=== PATIENT | male | born 1940 | race Caucasian/White ===

== ENCOUNTER 2018-11-18 02:24 | Observation (INO) | payer MEDICARE, BC ==
[~2018-11-18] VITALS: Ht 175.3 cm; Wt 134.1 kg
[~2018-11-18 02:24] MED LIST: AVINZA30 MG PO; CALAN SR240 MG PO; GLUCOPHAGE500 MG PO; HYDROCHLOROTH12.5 M1 PO; LISINOPRIL2.5 MG PO; MS CONTIN15 MG PO; PRINIVIL20 MG PO; RYBIX ODT50 MG PO; ZANAFLEX6 MG PO
[2018-11-18] MEDS ORDERED: ZANAFLEX4 MG PO (02:32)
[2018-11-18 02:42] LABS: BASOPHILS 0.1 % (0-2); EOSINOPHILS 1.5 % (0-7); HEMATOCRIT 39.1 % (42.0-54.0); HEMOGLOBIN 13.3 g/dL (13.5-17.5); IMMATURE GRANULOCYTES 0.3 % (0-5); LYMPHOCYTES 19.6 % (15-50); MCH 29.6 pg (26.0-34.0); MCV 87.1 fL (80.0-100.0); MEAN PLATELET VOLUME 9.8 fL (7.4-10.4); MONOCYTES 11.2 % (2-11); NEUTROPHILS 67.3 % (40-80); RBC 4.49 10x6/uL (4.20-6.10); RDW 12.9 % (11.5-14.5); WBC 13.4 10x3/uL (4.8-10.8)
[2018-11-18 02:47] LABS: PLATELET COUNT 231 10x3/uL (130-400)
[2018-11-18 03:00] VITALS: BP 172/69
[2018-11-18 03:11] LABS: ALBUMIN 3.6 g/dL (3.4-5.0); ALKALINE PHOSPHATASE 84 U/L (46-116); ALT (SGPT) 27 U/L (10-68); CALC OSMOLALITY 284 mosm/kg (275-300); CALCIUM 9.3 mg/dL (8.5-10.1); CARBON DIOXIDE 29.7 mmol/L (21.0-32.0); CHLORIDE - SERUM 98 mmol/L (98-107); CREATININE - SERUM 1.2 mg/dL (0.6-1.3); GLUCOSE 170 mg/dL (74-106); POTASSIUM - SERUM 3.9 mmol/L (3.5-5.1); PROTEIN - SERUM 8.7 g/dL (6.4-8.2); SODIUM 138 mmol/L (136-145); UREA NITROGEN 26 mg/dL (7-18); eGFR NON AFRICAN AMERICAN 63 mL/min (90-120)
[2018-11-18 03:12] LABS: APTT 36.7 SECONDS (22.8-39.4); INR 1.05 (0.85-1.17); PROTIME 13.2 SECONDS (11.6-15.0)
[2018-11-18 03:20] LABS: CKMB 2.7 U/L (0.0-3.6); CREATINE KINASE 108 UL (21-232); TROPONIN-I < 0.017 ng/mL (0.000-0.060)
--- NOTE | 2018-11-18 03:54 | NUR ---
[facility] ER NURSE CALLED REPORT AND WILL BRING PATIENT TO THE FLOOR.
[2018-11-18] MEDS ORDERED: BAYER CHEWABLE81 MG PO (04:45)
[2018-11-18 05:04] VITALS: BP 192/65; BMI 44.0
--- NOTE | 2018-11-18 05:27 | NUR ---
PAGED DOCTOR ON-CALL FOR PAIENTS PAIN LEVEL. PATIENT IS IN ROOM CRYING FROM PAIN.
[2018-11-18 06:54] LABS: ALBUMIN 3.4 g/dL (3.4-5.0); ALKALINE PHOSPHATASE 77 U/L (46-116); ALT (SGPT) 26 U/L (10-68); BILIRUBIN - TOTAL 1.01 mg/dL (0.2-1.3); CALC OSMOLALITY 278 mosm/kg (275-300); CALCIUM 9.6 mg/dL (8.5-10.1); CARBON DIOXIDE 27.2 mmol/L (21.0-32.0); CHLORIDE - SERUM 98 mmol/L (98-107); CKMB 2.4 U/L (0.0-3.6); CREATINE KINASE 101 UL (21-232); CREATININE - SERUM 1.1 mg/dL (0.6-1.3); GLUCOSE 183 mg/dL (74-106); PROTEIN - SERUM 8.4 g/dL (6.4-8.2); SODIUM 135 mmol/L (136-145); TROPONIN-I < 0.017 ng/mL (0.000-0.060); UREA NITROGEN 23 mg/dL (7-18); eGFR NON AFRICAN AMERICAN 69 mL/min (90-120)
--- NOTE | 2018-11-18 07:00 | NUR ---
RECEIVED REPORT. ASSUMED CARE OF PATIENT. CALL LIGHT WITHIN REACH. NO DISTRESS. RESTING IN BED WITH EYES CLOSED. PATIENT COMPLAIN OF DISCOMFORT TO NECK AND RIGHT SHOULDER. ADJUSTED PILLOW FOR COMFORT. PATIENT RECENTLY ADMINISTERED PAIN MEDICATION. DR. GARZA ON UNIT FOR AM ROUNDS.
--- NOTE | 2018-11-18 08:36 | NUR ---
PATIENT QUESTIONED ABOUT NECK AND SHOULDER PAIN AND PATIENT STATED HE FELL ABOUT 2 WEEKS AGO ON CONCRETE AT HIS APARTMENT COMPLEX. ON UNIT FOR ROUNDS AND NOTIFIED OF THIS INFORMATION THAT PATIENT HAD NO TOLD ANYONE AND NEW ORDERS RECEIVED FOR XRAYS.
[2018-11-18 09:43] VITALS: Ht 175.3 cm; Wt 134.1 kg
--- NOTE | 2018-11-18 09:59 | NUR ---
PATIENT OFF UNIT FOR XR OF SHOULDER AND NECK AT THIS TIME VIA WHEELCHAIR.
--- NOTE | 2018-11-18 10:20 | NUR ---
PATIENT RETURNED TO ROOM VIA WHEELCHAIR FROM XRAY
[2018-11-18 10:35] VITALS: BP 171/73
--- NOTE | 2018-11-18 11:55 | NUR ---
FSBS 252. 10 UNITS HUMULIN R ADMINISTERED PER SLIDING SCALE.
[2018-11-18 12:09] LABS: CREATINE KINASE 104 UL (21-232); TROPONIN-I < 0.017 ng/mL (0.000-0.060)
[2018-11-18 12:50] VITALS: BP 174/70
--- NOTE | 2018-11-18 15:49 | NUR ---
MEDICATED FOR PAIN AT THIS TIME. NO DISTRESS.
--- NOTE | 2018-11-18 18:09 | NUR ---
FSBS 225. 8 UNITS HUMULIN ADMINISTERED PER SLIDING SCALE. NO DISTRESS.
[2018-11-18 19:14] LABS: CKMB 1.3 U/L (0.0-3.6); CREATINE KINASE 85 UL (21-232); TROPONIN-I < 0.017 ng/mL (0.000-0.060)
[2018-11-18 20:00] VITALS: BP 128/73
--- NOTE | 2018-11-18 21:30 | NUR ---
PT UP IN BATHEROOM. PT SOB AND COMPLAINS OF 8/10PAIN IN NECK. PT STATES, "I CAN'T MOVE MY NECK. PRN PAIN MED GIVEN. LAID PT BACK IN BED AND GOT HIM ADJUSTED. PT RR RETURNED TO EVEN AND UNLABORED. BED LOW CALL LIGHT WITH IN REACH. WILL CONTINUE TO MONITOR. INSTRUCTED PT TO USE CALL LIGHT WHEN GETTING UP.
[2018-11-19 00:30] VITALS: BP 124/72
--- NOTE | 2018-11-19 00:37 | NUR ---
PT RESTING IN BED WITH EYES CLOSED RR EVEN AND UNLABORED. NO S/S OF DISTRESS AT THIS TIME. BED LOW CALL LIGHT WITHIN REACH. WILL CONTINUE TO MONITOR.
[2018-11-19 04:00] VITALS: BP 132/70
[2018-11-19 04:41] LABS: BASOPHILS 0.2 % (0-2); EOSINOPHILS 2.4 % (0-7); HEMATOCRIT 37.2 % (42.0-54.0); HEMOGLOBIN 12.5 g/dL (13.5-17.5); IMMATURE GRANULOCYTES 0.4 % (0-5); LYMPHOCYTES 21.3 % (15-50); MCH 29.5 pg (26.0-34.0); MCHC 33.6 g/dL (31.0-37.0); MCV 87.7 fL (80.0-100.0); MEAN PLATELET VOLUME 9.3 fL (7.4-10.4); MONOCYTES 16.2 % (2-11); NEUTROPHILS 59.5 % (40-80); PLATELET COUNT 185 10x3/uL (130-400); RBC 4.24 10x6/uL (4.20-6.10); RDW 13.1 % (11.5-14.5)
[2018-11-19 04:46] LABS: WBC 8.5 10x3/uL (4.8-10.8)
--- NOTE | 2018-11-19 04:54 | NUR ---
I have reviewed this patient and I concur with the Shift Assessment completed by the Licensed Practical Nurse today this shift.
--- NOTE | 2018-11-19 05:41 | NUR ---
PT A/O UP TO BATHEROOM. NO S/S OF DISTRESS AT THIS TIME. BED LOW CALL LIGHT WITHIN REACH. WILL CONTINUE TO MONITOR.
--- NOTE | 2018-11-19 07:00 | NUR ---
RECEIVED REPORT. ASSUMED CARE OF PATIENT. RESTING IN SUPINE POSITION WITH EYES CLOSED. RESP EVEN AND UNLABORED. NO DISTRESS. CALL LIGHT WITHIN REACH.
[2018-11-19 07:51] VITALS: BP 154/62
--- NOTE | 2018-11-19 09:00 | NUR ---
ASSISTED PATIENT TO SIT TO SIDE OF BED. CALL LIGHT WIHTIN REACH. NO DISTRESS. NO FAMILY AT BEDSIDE. PATIENT HAD NO COMPLAINTS AT THIS TIME.
--- NOTE | 2018-11-19 09:56 | CN ---
PATIENT NAME:ARTHUR LEIJA MEDICAL RECORD: [id number] : 44 LOCATION:D. D.2113 ADMIT DATE: 11/18/18 ACCOUNT: [id number] CONSULTING PHYSICIAN: ANGELA CURTIS MD REFERRING PHYSICIAN: CHITRA GARZA MD DATE OF CONSULTATION: 11/18/2018 HISTORY OF PRESENT ILLNESS: Arthur Leija is a 77-year-old gentleman with no known history of coronary artery disease, actually had a diagnostic angiography at approximately 4 years ago with no obstructive coronary artery disease. Admitted with somewhat atypical chest pain involving both shoulders, radiating to both arms, not worse with activity, did have a fall recently while taking the trash out felt to be secondary to this. Has chronic pain syndrome, on chronic opioids. We are asked to see him concerning his cardiovascular status. PAST MEDICAL HISTORY: Includes: 1. History of hypertension. 2. Hyperlipidemia. 3. Diabetes mellitus. ALLERGIES: INCLUDE SULFA, BETA ADRENERGIC AGENTS. SOCIAL HISTORY: Nonsmoker, nondrinker, easily does take care of his ADLs. No set exercise program. MEDICATIONS: Include morphine 30 mg b.i.d., metformin 500 b.i.d., hydrochlorothiazide 12.5 b.i.d., MS Contin 15 every 12 hours, aspirin 81 every day, lisinopril 20 b.i.d., verapamil 240 every day, Zanaflex 4 mg every 6 hours p.r.n. REVIEW OF SYSTEMS: The patient reports easy bruising but reports no swollen glands. The patient reports no fever, no night sweats, no significant weight gain, no significant weight loss. No significant exercise tolerance. The patient reports no dry eyes, no irritation, no vision change. Patient reports no difficulty hearing and no ear pain. Patient reports no frequent nose bleeds or nose and sinus problems. Patient reports on arm pain on exertion. No shortness of breath while lying down. No history of heart murmur. Patient reports no cough, no wheezing or coughing up blood. Patient reports no abdominal pain, no vomiting. Normal appetite. No diarrhea and not vomiting blood. No nausea and no constipation. Patient reports no incontinence. No difficulty urinating. No hematuria. No increased frequency. Patient reports no muscle aches. No weakness, no arthralgias, no back pain. No swelling of the extremities. Patient reports no abnormal mole, no jaundice, no rashes. Reports no loss of consciousness. No weakness and no numbness. No seizures, dizziness, or headaches. The patient reports no depression, no sleep disturbance, feeling safe in a relationship and no alcohol abuse. Patient reports on fatigue. Reports no runny nose or sinus pressure. No itching, no hives, and no frequent sneezing. PHYSICAL EXAMINATION: GENERAL: Pleasant gentleman in no acute distress, appears stated age. VITAL SIGNS: Blood pressure 192/65, pulse 78 and regular. HEENT: Normocephalic, atraumatic. NECK: No bruits are noted. HEART: Regular, S4 gallop is noted. CONSULT REPORT [id number] ARTHUR LEIJA LUNGS: Good air excursion. ABDOMEN: Soft, nontender. EXTREMITIES: Pulses 2+. There is no edema. DIAGNOSTIC DATA: ECG shows a left anterior fascicular block, no acute ST-T changes. IMPRESSION: Somewhat atypical symptomatologies. Enzymes negative at this point. If it continues to be negative, then he will receive pain control with his oral analgesics. No contraindication to discharge from my standpoint, simply set for outpatient nuclear stress testing in the near future. TRANSINT:[id number] Voice Confirmation ID: [id number] DOCUMENT ID: [id number] ANGELA CURTIS MD at 0956 CC: [id number] DICTATION DATE: 11/18/18939 DYE HOUSE WORKER: 11/18/18 1114 ADM IN [place] [id number] [place] [id number]
--- NOTE | 2018-11-19 11:50 | NUR ---
FSBS 216. 8 UNITS HUMULIN R ADMINISTERED PER SLIDING SCALE. MEDICATED FOR PAIN AT THIS TIME. SITTING TO SIDE OF BED CONSUMING NOON MEAL. NO DISTRESS.
[2018-11-19 12:11] VITALS: BP 160/61
[2018-11-19] MEDS ORDERED: ZANAFLEX4 MG PO (13:27)
--- NOTE | 2018-11-19 14:46 | NUR ---
1420 TELEMETRY REMOVED AND RETURNED TO HOSPITAL ADMISSIONS OFFICER. 20 GAUGE IV REMOVED FROM LEFT AC AREA. CATHETER TIP INTACT. NO BLEEDING FROM SITE. 2X2 GAUZE APPLIED AND SECURED WITH BANDAID. TOLERATED IV REMOVAL WELL. PATIENT IS BEING DISCHARGED TO HOME.
--- NOTE | 2018-11-19 14:47 | NUR ---
1435 DISCHARGE INSTRUCTIONS PROVIDED TO PATIENT. VERBALIZED HIS UNDERSTANDING OF ALL INSTRUCTIONS PROVIDED. 1440 PATIENT LEFT UNIT VIA WHEELCHAIR. PATIENT DISCHARGED TO HOME WITH ALL OF HIS PERSONAL BELONGINGS. PATIENT IN NO ACUTE DISTRESS UPON DISCHARGE FROM UNIT. PATIENT LEFT UNIT WITH WALLET, 2 SETS OF KEYS, CHECKBOOK, CELLPHONE AND SALES SERVICE COORDINATOR.
--- NOTE | 2018-11-20 09:04 | MORECARE ---
CASE MANAGEMENT DISCHARGE SUMMARY PATIENT: STAR BAJWA UNIT: [id number] ADM DATE: 11/18/18 AGE: 77 : 42 SEX: M ROOM/BED: D.2113 AUTHOR: NIKO DIANA PHYSICIAN: REFERRING PHYSICIAN: CHITRA GARZA MD DATE OF SERVICE: 11/20/18 Discharge Plan Patient Name: STAR BAJWA [facility] [facility] 1940 Planned Disposition: Home Anticipated Discharge Date: 11/19/18 Discharge Date: 11/19/2018 Expected LOS: 1 Initial Reviewer: [email or web address] Initial Review Date: 11/20/2018 Generated: 11/20/18 10:03 am Patient Name: STAR BAJWA Page [phone] at 0904 All edits/amendments must be made on the electronic document DICTATION DATE: 11/20/18902 COREMAKER: CL 11/20/18902 RPT#: [id number] DC DATE:11/19/18 STATUS: DIS IN [facility] [address] [place] [address] END OF REPORT
== END 2018-11-19 14:50 | disposition home or self-care (01) ==
LOC: D.ER 02:24 → OBSVTIME 03:09 → D.M2 03:09
PROVIDERS: Emergency Medicine; ADMIT Family Medicine; ATTEND Family Medicine
DX: M50.90 Cervical disc disorder, unspecified, unspecified cervical region (principal); S16.1XXA Strain of muscle, fascia and tendon at neck level, initial encounter; W19.XXXA Unspecified fall, initial encounter; E11.9 Type 2 diabetes mellitus without complications; R07.9 Chest pain, unspecified; I10 Essential (primary) hypertension; E78.5 Hyperlipidemia, unspecified

== ENCOUNTER 2018-11-23 15:17 | Inpatient (IN) | payer MEDICARE, BC ==
[2018-11-23] VITALS (9 sets, daily range): BP systolic 116–140; BP diastolic 44–80; BMI 44.7
[~2018-11-23] VITALS: Ht 175.3 cm; Wt 134.8 kg
[~2018-11-23 15:17] MED LIST changes: +BAYER CHEWABLE81 MG PO; +ZANAFLEX4 MG PO
--- NOTE | 2018-11-23 15:39 | NUR ---
SPOKE TO WEN WITH DR GARZA. PATIENT SENT HERE FOR WEAKNESS, N&V. NO LABS OR ORDERS.
[2018-11-23 16:05] LABS: BASOPHILS 0.1 % (0-2); EOSINOPHILS 0 % (0-7); HEMATOCRIT 37.5 % (42.0-54.0); HEMOGLOBIN 12.5 g/dL (13.5-17.5); IMMATURE GRANULOCYTES 0.4 % (0-5); LYMPHOCYTES 13.5 % (15-50); MCH 29.3 pg (26.0-34.0); MCHC 33.3 g/dL (31.0-37.0); MEAN PLATELET VOLUME 9.9 fL (7.4-10.4); MONOCYTES 12.6 % (2-11); NEUTROPHILS 73.4 % (40-80); RBC 4.26 10x6/uL (4.20-6.10); RDW 13.8 % (11.5-14.5)
[2018-11-23 16:09] LABS: PLATELET COUNT 272 10x3/uL (130-400)
[2018-11-23 16:14] LABS: INR 1.19 (0.85-1.17); PROTIME 14.6 SECONDS (11.6-15.0)
[2018-11-23 16:15] LABS: APTT 37.6 SECONDS (22.8-39.4)
[2018-11-23 16:26] LABS: ALBUMIN 3.5 g/dL (3.4-5.0); ALKALINE PHOSPHATASE 67 U/L (46-116); ALT (SGPT) 30 U/L (10-68); BILIRUBIN - TOTAL 0.74 mg/dL (0.2-1.3); CALC OSMOLALITY 312 mosm/kg (275-300); CARBON DIOXIDE 29.3 mmol/L (21.0-32.0); CHLORIDE - SERUM 95 mmol/L (98-107); CREATININE - SERUM 11.1 mg/dL (0.6-1.3); POTASSIUM - SERUM 5.8 mmol/L (3.5-5.1); PROTEIN - SERUM 8.9 g/dL (6.4-8.2); SODIUM 141 mmol/L (136-145); UREA NITROGEN 100 mg/dL (7-18); eGFR NON AFRICAN AMERICAN 5 mL/min (90-120)
[2018-11-23 16:31] LABS: CKMB 8.1 U/L (0.0-3.6); CREATINE KINASE 769 UL (21-232); GLUCOSE 121 mg/dL (74-106); THYROID STIMULATING HORMONE 0.96 uIU/mL (0.36-3.74); TROPONIN-I < 0.017 ng/mL (0.000-0.060)
[2018-11-23 16:37] LABS: KETONE - SERUM NEGATIVE (NEGATIVE)
[2018-11-23 17:23] LABS: APPEARANCE HAZY (CLEAR); BILIRUBIN NEGATIVE (NEGATIVE); COLOR AMBER (YELLOW); GLUCOSE 50 mg/dL (NEGATIVE); KETONE NEGATIVE (NEGATIVE); NITRITE NEGATIVE (NEGATIVE); PROTEIN 2+ mg/dL (NEGATIVE); UROBILINOGEN NORMAL (NORMAL)
[2018-11-23 17:24] LABS: BACTERIA MODERATE /hpf (NEGATIVE); EPITHELIAL CELLS 0-5 /hpf (0-5); WHITE CELLS - URINE 0-5 /hpf (NEGATIVE)
[2018-11-23 17:29] LABS: UDS - AMPHET NEGATIVE QUAL (NEGATIVE); UDS - BARB NEGATIVE QUAL (NEGATIVE); UDS - BENZO NEGATIVE QUAL (NEGATIVE); UDS - COCAINE NEGATIVE QUAL (NEGATIVE); UDS - OPIATE POSITIVE QUAL (NEGATIVE); UDS - PCP NEGATIVE QUAL (NEGATIVE); UDS - THC NEGATIVE QUAL (NEGATIVE)
--- NOTE | 2018-11-23 17:41 | NUR ---
PT REQUESTED I CALL AND UPDATE PAULIE ULRICH AT [phone]. COMPLETED.
--- NOTE | 2018-11-23 17:50 | NUR ---
REPORT CALLED TO BRADLEY MAS IN CVICU ROOM 2. ROOM DIRTY BUT WILL LET US KNOW WHEN ITS CLEAN.
--- NOTE | 2018-11-23 17:58 | NUR ---
RECEIVED REPORT FROM ER, REGARDING PATIENT, ROOM CURRENTLY BEING CLEANED WILL CALL WHEN CLEAN TO HAVE PATIENT TRANSFERRED. ALSO CONTACTED DR. MYERS'S OFFICE TO NOTIFY OF CONSULT FOR PATIENT.
--- NOTE | 2018-11-23 18:30 | NUR ---
ns bolus stop time #1 1883. #2 5501.
--- NOTE | 2018-11-23 18:59 | NUR ---
[place] [address] FROM ER VIA STRETCHER, ALERT AND ORIENTED X 4. VSS. BP - 130/53, HR - 79 NSR ON CM, BBS CLEAR, DIMINISHED IN BASES, SPO2 - 96% ON 2 LPM VIA NC. IV 20 GA TO LEFT HAND PATENT, INFUSING NS AT 125 CC/HR. CLOTHING REMOVED AND PLACED IN GOWN. POSITIONED IN BED. TEMP 98.3.
--- NOTE | 2018-11-23 19:47 | NUR ---
PT RECEIVED WITH EYES OPEN. NO S/S OF DISTRESS. OFF GOING NURSE PLACING HENDERSON CATHETER PER POLICY. PT TOLERATED WELL NO RETURN NOTED. ER REGISTRATION UP TO ROOM TO PLACE WALLET AND CONTENTS WITH CHECK BOOK INTO SAFE CONTENT OBSERVE BY THIS NURSE AND ER REGISTRATION. PT COMPLAINS OF NAUSEA WITH HOB ELEVATED AND EMESIE BAG WITHIN REACH. PRN ZOFRAN GIVEN PER APR. PT WITH EYES CLOSED AND CHEST RISING AT THIS TIME. CALL LIGHT IN REACH. WILL CONTINUE TO OBSERVE.
--- NOTE | 2018-11-23 21:00 | NUR ---
DR MYERS HAS COME AND ASSESSED PT AND LEFT UNIT.
--- NOTE | 2018-11-23 21:30 | NUR ---
SCHEDULED MEDICATIONS GIVEN PER MAR. NO NEEDS MADE KNOWN. CALL LIGHT IN REACH. WILL CONTINUE TO OBSERVE.
[2018-11-23 23:29] LABS: CKMB 6.8 U/L (0.0-3.6); CREATINE KINASE 657 UL (21-232)
[2018-11-23 23:31] LABS: TROPONIN-I < 0.017 ng/mL (0.000-0.060)
--- NOTE | 2018-11-23 23:54 | NUR ---
PT WITH EYES CLOSED AND CHEST RISING. NO S/S OF DISTRESS. CALL LIGHT IN REACH. WILL CONTINUE TO OBSERVE.
[2018-11-24] VITALS (25 sets, daily range): BP systolic 102–154; BP diastolic 38–67; Ht 175.3 cm; Wt 134.8 kg
--- NOTE | 2018-11-24 02:05 | NUR ---
PT WITH EYES CLOSED AND CHEST RISING. NO S/S OF DISTRESS. CALL LIGHT IN REACH. WILL CONTINUE TO OBSERVE.
--- NOTE | 2018-11-24 03:45 | NUR ---
PT RESTING WITH EYES CLOSED AND CHEST RISING, NO S/S OF DISTRESS. EASILY AWOKEN TO VERBAL STIMULI. NO NEEDS MADE KNOWN. CALL LIGHT IN REACH. WILL CONTINUE TO OBSERVE.
--- NOTE | 2018-11-24 04:27 | NUR ---
URINE COLLECTED VIA CATHETER AND SENT TO LAB. PT TOLERATED WELL
--- NOTE | 2018-11-24 05:06 | NUR ---
CHG BATH GIVEN. COMPLETE LINEN CHANGE. PT TOLERATED WELL. WILL CONTINUE TO OBSERVE.
[2018-11-24 05:36] LABS: BASOPHILS 0.2 % (0-2); EOSINOPHILS 0.3 % (0-7); HEMATOCRIT 35.4 % (42.0-54.0); HEMOGLOBIN 11.4 g/dL (13.5-17.5); IMMATURE GRANULOCYTES 0.4 % (0-5); LYMPHOCYTES 23.6 % (15-50); MCH 28.9 pg (26.0-34.0); MCHC 32.2 g/dL (31.0-37.0); MCV 89.6 fL (80.0-100.0); MONOCYTES 16.4 % (2-11); NEUTROPHILS 59.1 % (40-80); PLATELET COUNT 240 10x3/uL (130-400); RBC 3.95 10x6/uL (4.20-6.10); RDW 13.7 % (11.5-14.5); WBC 12.8 10x3/uL (4.8-10.8)
[2018-11-24 06:01] LABS: ALBUMIN 2.9 g/dL (3.4-5.0); ALKALINE PHOSPHATASE 54 U/L (46-116); ALT (SGPT) 23 U/L (10-68); BILIRUBIN - TOTAL 0.52 mg/dL (0.2-1.3); CALC OSMOLALITY 321 mosm/kg (275-300); CALCIUM 7.6 mg/dL (8.5-10.1); CHLORIDE - SERUM 101 mmol/L (98-107); CKMB 7.2 U/L (0.0-3.6); CREATINE KINASE 628 UL (21-232); CREATININE - SERUM 11.4 mg/dL (0.6-1.3); GLUCOSE 90 mg/dL (74-106); LIPASE 102 U/L (73-393); POTASSIUM - SERUM 5.2 mmol/L (3.5-5.1); PROTEIN - SERUM 7.6 g/dL (6.4-8.2); SODIUM 144 mmol/L (136-145); TROPONIN-I < 0.017 ng/mL (0.000-0.060); UREA NITROGEN 110 mg/dL (7-18); URIC ACID 19.7 mg/dL (2.6-7.2); eGFR NON AFRICAN AMERICAN 5 mL/min (90-120)
--- NOTE | 2018-11-24 07:00 | NUR ---
RECEIVED BEDSIDE REPORT ON PATIENT AND ASSUMED CARE. VSS. PATIENT RESTING QUIETLY, EASILY AROUSED BY VOICE. BBS CLEAR DIMINISHED IN BASES. IV NS AT 125 CC/HR INFUSING W/O DIFFICULTY TO 20 GA IV TO LEFT HAND. NO S/S OF INFILTRATION. HENDERSON CATH IN PLACE WITH LORNA UOP NOTED. ON O2 VIA NC AT 2 LPM.
--- NOTE | 2018-11-24 08:00 | NUR ---
PATIENT EATING BREAKFAST TRAY NO NEEDS AT THIS TIME. VSS.
--- NOTE | 2018-11-24 09:08 | NUR ---
PATIENT GIVEN MORNING MEDS PER EMAR. RESTING QUIETLY, VSS.
[2018-11-24 10:28] LABS: CKMB 8.5 U/L (0.0-3.6); CREATINE KINASE 649 UL (21-232)
[2018-11-24 10:29] LABS: TROPONIN-I < 0.017 ng/mL (0.000-0.060)
--- NOTE | 2018-11-24 11:10 | NUR ---
REASSESSMENT COMPLETE. VSS. REPOSITIONED IN BED.
--- NOTE | 2018-11-24 12:30 | NUR ---
ER REGISTRATION AT ROOM WITH PATIENTS BELONGINGS, GIVEN TO PATIENTS BROTHER TO TAKE HOME.
--- NOTE | 2018-11-24 13:59 | NUR ---
DR. RUTHERFORD AT ROOM, UPDATED ON PATIENT AND EXAMINES PATIENT. ORDERS RECEIVED.
--- NOTE | 2018-11-24 14:09 | NUR ---
PATIENT RESTING QUIELTY, EYES CLOSED. VSS.
--- NOTE | 2018-11-24 14:12 | MORECARE ---
CASE MANAGEMENT DISCHARGE SUMMARY PATIENT: STAR BAJWA UNIT: [id number] ADM DATE: 11/23/18 AGE: 77 : 42 SEX: M ROOM/BED: [facility] AUTHOR: NIKO DIANA PHYSICIAN: REFERRING PHYSICIAN: CHITRA GARZA MD DATE OF SERVICE: 11/24/18 Discharge Plan Patient Name: STAR BAJWA [facility] [facility] 1940 Planned Disposition: Anticipated Discharge Date: Discharge Date: Expected LOS: Initial Reviewer: [email or web address] Initial Review Date: 11/23/2018 Generated: 11/24/18 3:12 pm Patient Name: STAR BAJWA Page [phone] at 1412 All edits/amendments must be made on the electronic document DICTATION DATE: 11/24/181411 RUBBER GOODS ASSEMBLER: CL 11/24/181411 RPT#: [id number] [place] DATE: STATUS: ADM IN [facility] [address] [place] [address] END OF REPORT
--- NOTE | 2018-11-24 14:23 | MORECARE ---
CASE MANAGEMENT DISCHARGE SUMMARY PATIENT: STAR BAJWA UNIT: [id number] ADM DATE: 11/23/18 AGE: 77 : 42 SEX: M [facility] AUTHOR: NIKO DIANA PHYSICIAN: REFERRING PHYSICIAN: CHITRA GARZA MD DATE OF SERVICE: 11/24/18 Discharge Plan Patient Name: STAR BAJWA [facility] [facility] 1940 Planned Disposition: Anticipated Discharge Date: Discharge Date: Expected LOS: Initial Reviewer: [email or web address] Initial Review Date: 11/23/2018 Generated: 11/24/18 3:22 pm DCPIA - Discharge Planning Initial Assessment Updated by [email or web address]: Jaylyn Davenport on 11/24/18 2:18 pm * PCP ALEX MONTERO * Pharmacy [facility] * Preadmission Environment Home Alone * ADLs Independent * Other Equipment WALKER , CANES, BSC * List name and contact numbers for known caregivers / representatives who currently or will assist patient after discharge: PAULIE BAJWA [facility] - [phone] * Verbal permission to speak to the caregivers and representatives has been obtained from the patient. Yes * Community resources currently utilized None * Additional services required to return to the preadmission environment? No * Can the patient safely return to the preadmission environment? Yes * Has this patient been hospitalized within the prior 30 days at any hospital? No Last DP export: 11/24/18 1:12 Patient Name: STAR BAJWA Page [phone] at 1423 All edits/amendments must be made on the electronic document DICTATION DATE: 11/24/181421 CHARTERED ACCOUNTANT: LC 11/24/18 142 RPT#: [id number] DC DATE: STATUS: ADM IN [facility] [address] [place] [address] END OF REPORT
--- NOTE | 2018-11-24 14:33 | MORECARE ---
CASE MANAGEMENT DISCHARGE SUMMARY PATIENT: STAR BAJWA UNIT: [id number] ADM DATE: 11/23/18 AGE: 77 : 42 SEX: M ROOM/BED: D.02 AUTHOR: LEBRONDOC PHYSICIAN: REFERRING PHYSICIAN: CHITRA GARZA MD DATE OF SERVICE: 11/24/18 Discharge Plan Patient Name: STAR BAJWA Facility: [facility]:[place] : 1940 Planned Disposition: Anticipated Discharge Date: Discharge Date: Expected LOS: Initial Reviewer: [email or web address] Initial Review Date: 11/23/2018 Generated: 11/24/18 3:33 pm Comments DCP- Discharge Planning Updated by [email or web address]: Jaylyn Davenport on 11/24/18 1:[address] Patient Name: STAR BAJWA Admission Status: ER Accout number: [id number] Admission Date: 11-23-2018 : 1940 Admission Diagnosis: Attending: CHITRA GARZA Current LOS: 1 Anticipated DC Date: Planned Disposition: Primary Insurance: MEDICARE A & B Discharge Planning Comments: CM met with patient at bedside after explaining CM role and obtaining verbal consent. Patient lives at home alone where he is independent with his care and plans to return there upon discharge. Patient is very difficult to follow in his communication. Patient is speaking in circles and having trouble expressing what he is trying to say. Patient states he is . CM was able to get son's phone number from ER records. CM discussed availability / needs of home health and medical equipment. Patient states he may need some help at home.Patient denies any discharge needs at this time. Patient states he will have his family drive him home upon discharge. CM will re-eval once patients thought process is clearer. Patient will most likely need rehab / snf / or at the least . CM will continue to follow and assist as needed with discharge planning / needs. [employer] Spanish Teacher: Jaylyn Davenport DCPIA - Discharge Planning Initial Assessment Updated by [email or web address]: Jaylyn Davenport on 11/24/18 2:18 pm * PCP ALEX MONTERO * Pharmacy [facility] * Preadmission Environment Home Alone * ADLs Independent * Other Equipment WALKER , CANES, BSC * List name and contact numbers for known caregivers / representatives who currently or will assist patient after discharge: PAULIE BAJWA - [facility] - [phone] * Verbal permission to speak to the caregivers and representatives has been obtained from the patient. Yes * Community resources currently utilized None * Additional services required to return to the preadmission environment? No * Can the patient safely return to the preadmission environment? Yes * Has this patient been hospitalized within the prior 30 days at any hospital? No Last DP export: 11/24/18 1:23 Patient Name: STAR BAJWA Page [phone] at 1433 All edits/amendments must be made on the electronic document DICTATION DATE: 11/24/181432 TRIMMER AND BORER MACHINE OPERATOR: CL 11/24/181432 RPT#: [id number] DC DATE: STATUS: ADM IN [facility] [address] [place] [address] END OF REPORT
--- NOTE | 2018-11-24 15:00 | NUR ---
REASSESSMENT COMPLETED. VSS. PATIENT REPOSITIONED IN BED.
--- NOTE | 2018-11-24 16:29 | NUR ---
PATIENT C/O BACK PAIN, STATES HAS CHRONIC PAIN TO BACK, RATES 6/10, ACHES. GIVEN PRN BUPRENEX 0.2 MG IVP WITH NS FLUSH PER ORDER. TURNED AND REPOSITIONED IN BED.
--- NOTE | 2018-11-24 19:00 | NUR ---
PT ASSESSMENT COMPLETED AT THIS TIME, NO CHANGES FROM NURSE REPORT, VSS, WILL CONT. TO MONITOR
--- NOTE | 2018-11-24 21:00 | NUR ---
PT RESTING WITH EYES CLOSED, RESP EVEN NON LABORED, NO DISTRESS NOTED, VSS
--- NOTE | 2018-11-24 23:00 | NUR ---
PT REASSESSMENT COMPLETED AT THIS TIME, NO CHANGES NOTED, VSS, WILL CONT TO MONITOR
[2018-11-25] VITALS (24 sets, daily range): BP systolic 111–180; BP diastolic 27–83
--- NOTE | 2018-11-25 01:03 | NUR ---
PT PULLED OFF ECG LEADS, WHEN ASKED WHAT HE WAS DOING THE PT RESPONDED HE WAS GETTING UP TO TAKE A SHOWER, PT WAS REORIENTED ON PLACE, TIME, AND SITUATION, PT ADVISED THAT HE UNDERSTOOD., VSS, WILL MONITOR FOR CHANGES
--- NOTE | 2018-11-25 03:00 | NUR ---
PT REASSESSMENT COMPLETED AT THIS TIME, NO CHANGES NOTED, VSS
--- NOTE | 2018-11-25 05:00 | NUR ---
PT I AND O COLLECTED AT THIS TIME, NO DITRESS NOTED, VSS
[2018-11-25 06:01] LABS: BASOPHILS 0.3 % (0-2); EOSINOPHILS 0.4 % (0-7); HEMATOCRIT 37.5 % (42.0-54.0); HEMOGLOBIN 12.1 g/dL (13.5-17.5); IMMATURE GRANULOCYTES 0.4 % (0-5); LYMPHOCYTES 11.2 % (15-50); MCHC 32.3 g/dL (31.0-37.0); MCV 89.9 fL (80.0-100.0); MEAN PLATELET VOLUME 9.9 fL (7.4-10.4); MONOCYTES 16.9 % (2-11); NEUTROPHILS 70.8 % (40-80); PLATELET COUNT 213 10x3/uL (130-400); RBC 4.17 10x6/uL (4.20-6.10); RDW 13.3 % (11.5-14.5); WBC 11.4 10x3/uL (4.8-10.8)
[2018-11-25 06:50] LABS: CALCIUM 7.5 mg/dL (8.5-10.1); CHLORIDE - SERUM 99 mmol/L (98-107); CREATININE - SERUM 9.6 mg/dL (0.6-1.3); PHOSPHOROUS 8.4 mg/dL (2.5-4.9); POTASSIUM - SERUM 5.2 mmol/L (3.5-5.1); SODIUM 140 mmol/L (136-145); UREA NITROGEN 105 mg/dL (7-18); URIC ACID 16.8 mg/dL (2.6-7.2); eGFR NON AFRICAN AMERICAN 6 mL/min (90-120)
[2018-11-25 06:52] LABS: CALC OSMOLALITY 316 mosm/kg (275-300); CARBON DIOXIDE 33.1 mmol/L (21.0-32.0); CREATINE KINASE 3094 UL (21-232); GLUCOSE 186 mg/dL (74-106)
--- NOTE | 2018-11-25 07:10 | NUR ---
REPORT RECEIVED. JUST FINISHED CHG ON PT. PT CONFUSED. HAS HENDERSON. IV TO LEFT HAND WITH D5W WITH 3 AMPS OF BICARB INFUSING AT 100ML/HR. PT HAS LESIONS TO TOE ON RIGHT FOOT. OPEN TO AIR. VSS. ON O2 AT 2L VIA NC. BED ALARM ON. CALL LIGHT IN REACH. WILL CONTINUE TO MONITOR.
[2018-11-25 07:14] LABS: CKMB 49.5 U/L (0.0-3.6)
--- NOTE | 2018-11-25 09:02 | NUR ---
ASSISTED PT WITH FILLING OUT MENU. PT STATES HE HURTS BUT IS CONFUSED AND UNABLE TO UNDERSTAND TO EXPLAIN LOCATION OR PAIN LEVEL. BUPRENEX GIVEN. WILL CONTINUE TO MONITOR.
--- NOTE | 2018-11-25 09:07 | NUR ---
PERLA SULLIVAN, WITH RENAL ROUNDED ON PT. UPDATED ON PT'S STATUS THIS AM AND ELEVATED BP. ANTIONE INHIBITORS HELD. STATED SHE WOULD LOOK AT CHART AND ORDER SOMETHING PRN FOR BP. WILL CONTINUE TO MONITOR.
--- NOTE | 2018-11-25 11:07 | NUR ---
PT ASSISTED TO BSC WITH 3 NURSES. PT HAD LARGE FORMED BM. ASSISTED BACK TO BED. PT CONFUSED. REASSESSMENT COMPLETED. WILL CONTINUE TO MONITOR.
--- NOTE | 2018-11-25 13:40 | NUR ---
PT CRYING. UPSET ABOUT NOT BEING ABLE TO REMEMBER WHERE HE IS. PT REQUESTED CATIE. DIETARY SENT UP FOR HIM. PT CALMED DOWN. REPORT GIVEN TO BRADLEY FISHER. 1899 EMPTIED FROM CATHETER.
--- NOTE | 2018-11-25 16:14 | NUR ---
DR BOURGEOIS AT BEDSIDE-STATUS REPORT GIVEN
--- NOTE | 2018-11-25 19:00 | NUR ---
PT RESTING IN BED. CONFUSED TRYING TO SLIDE OUT OF BED. PT STATED HE NEEDED TO URINATE HOWEVER HE HAS A CATHETER IN. GIVEN A URINAL. WILL CONTINUE TO MONITOR
--- NOTE | 2018-11-25 21:00 | NUR ---
PT RESTING IN BED. NO COMPLAINTS NOTED AT THIS TIME. VSS. WILL CONTINUE TO MONITOR
--- NOTE | 2018-11-25 23:00 | NUR ---
PT RESTING IN BED. VSS. REASSESSMENT COMPLETED. NO COMPLAINTS NOTED AT THIS TIME. WILL CONTINUE TO MONITOR
[2018-11-26] VITALS (21 sets, daily range): BP systolic 103–158; BP diastolic 50–81
--- NOTE | 2018-11-26 00:59 | NUR ---
PT IS CONFUSED AND DISORIENTED. STATES HE IS AT THE BANK. TRYING TO GET OUT OF BED. REORIENTATION ATTEMPTS DID NOT SUCCEED. PT IS STILL TRYING TO GET OUT OF BED. VSS. WILL CONTINUE TO MONITOR
--- NOTE | 2018-11-26 03:00 | NUR ---
PT RESTING IN BED. VSS. NO COMPLAINTS NOTED AT THIS TIME. REASSESSMENT COMPLETED. WILL CONTINUE TO MONITOR
--- NOTE | 2018-11-26 05:00 | NUR ---
PT RESTING IN BED. NO SIGNS OF DISTRESS NOTED. VSS. WILL CONTINUE TO MONITOR
[2018-11-26 05:50] LABS: BASOPHILS 0.2 % (0-2); EOSINOPHILS 0.2 % (0-7); HEMATOCRIT 41.1 % (42.0-54.0); HEMOGLOBIN 13.5 g/dL (13.5-17.5); IMMATURE GRANULOCYTES 0.2 % (0-5); LYMPHOCYTES 10.2 % (15-50); MCH 29.5 pg (26.0-34.0); MCHC 32.8 g/dL (31.0-37.0); MCV 89.7 fL (80.0-100.0); MEAN PLATELET VOLUME 10.1 fL (7.4-10.4); MONOCYTES 16.5 % (2-11); NEUTROPHILS 72.7 % (40-80); PLATELET COUNT 199 10x3/uL (130-400); RBC 4.58 10x6/uL (4.20-6.10); RDW 13.2 % (11.5-14.5); WBC 12.7 10x3/uL (4.8-10.8)
[2018-11-26 06:18] LABS: ANION GAP 12.9 mmol/L (8-16); CALCIUM 8.5 mg/dL (8.5-10.1); CARBON DIOXIDE 31.6 mmol/L (21.0-32.0); POTASSIUM - SERUM 4.5 mmol/L (3.5-5.1)
[2018-11-26 06:19] LABS: CREATININE - SERUM 5.7 mg/dL (0.6-1.3); PHOSPHOROUS 4.8 mg/dL (2.5-4.9)
--- NOTE | 2018-11-26 08:30 | NUR ---
NOTED AFIB 102-DR GARZA PG'D
[2018-11-26 09:43] LABS: MAGNESIUM - SERUM 2.1 mg/dL (1.8-2.4); T4 THYROXIN - FREE 1.21 ng/dL (0.76-1.46); THYROID STIMULATING HORMONE 0.25 uIU/mL (0.36-3.74)
--- NOTE | 2018-11-26 14:25 | NUR ---
899-DR MORALES AT [facility]-PT SPOKE LUCIDLY WITH HIM REGARDING PAST MEDICAL- ORDERS RECIEVED AND NOTED 929-PHYSICAL THERAPY AT [facility]--HR 100-120 AFIB-ABLE TO EASILY TAKE PO CARDIZEM WITH WATER-REFUSED BREAKFEST TRAY 121-APPLE SAUCE ONLY OFF LUNCH TRAY-NOTED MARKED HAND SHAKING-ASSISTED PT 1400-PHYSICAL THERAPY AT BEDSIDE-DANGLED PT OFF SIDE OF BED-AND STOOD WITH WALKER X <1MIN-POOR STRENGTH TO L LEG AND MARKED SHAKINESS 143-DR BOURGEOIS AT [facility]-PT HAD TO AWAKENED WITH PHYSCIAL STIMULI-SHOULDER SHAKE-LETHARGIC AND DRIFTED TO SLEEP IN MIDDLE OF ANSWERING
--- NOTE | 2018-11-26 19:23 | NUR ---
PT RECEIVED WITH EYES CLOSED AND CHEST RISING. OPENS EYES TO VERBAL STIMULI. VSS. NO NEEDS MADE KNOWN. CALL LIGHT IN REACH. WILL CONTINUE TO OBSERVE.
--- NOTE | 2018-11-26 21:51 | NUR ---
PT RECEIVED SCHEDULED MEDICATIONS PER MAR, TOLERATED WELL. COMPLAINS OF FULL BLADDER WITH HENDERSON TUBE STRAIGHTENED WITH SLIGHT DECLINE WITH ABOUT 300MLS EMPTIED IN TO HENDERSON COLLECTION BAG. PT STATES FEELING OF CONTINUED FULL BLADDER. NO URINE NOTED IN TUBING. EXPLAINED TO PT. WILL CONTINUE TO OBSERVE.
--- NOTE | 2018-11-26 23:25 | NUR ---
PT RESTING WITH EYES CLOSED AND CHEST RISING. EASILY AWOKEN TO VERBAL STIMULI. NO NEEDS OR CONCERNS NOTED. CALL LIGHT IN REACH. WILL CONTINUE TO OBSERVE.
[2018-11-27] VITALS (16 sets, daily range): BP systolic 121–175; BP diastolic 56–82
--- NOTE | 2018-11-27 00:41 | NUR ---
PT PULLED UP IN BED. GIVEN JELLO PER REQUEST. WILL CONTINUE TO OBSERVE.
--- NOTE | 2018-11-27 03:36 | NUR ---
PT WITH EYES CLOSED AND CHEST RISING. EASILY AWOKEN WITH VERBAL STIMULI. NO NEEDS OR CONCERNS NOTED. CALL LIGHT IN REACH. WILL CONTINUE TO OBSERVE.
[2018-11-27 04:31] LABS: BASOPHILS 0.2 % (0-2); EOSINOPHILS 0.3 % (0-7); HEMATOCRIT 42.3 % (42.0-54.0); HEMOGLOBIN 13.8 g/dL (13.5-17.5); IMMATURE GRANULOCYTES 0.3 % (0-5); LYMPHOCYTES 11.1 % (15-50); MCH 29.3 pg (26.0-34.0); MCHC 32.6 g/dL (31.0-37.0); MCV 89.8 fL (80.0-100.0); MEAN PLATELET VOLUME 10.5 fL (7.4-10.4); MONOCYTES 14.7 % (2-11); NEUTROPHILS 73.4 % (40-80); PLATELET COUNT 216 10x3/uL (130-400); RBC 4.71 10x6/uL (4.20-6.10); RDW 13.1 % (11.5-14.5); WBC 12.4 10x3/uL (4.8-10.8)
[2018-11-27 04:53] LABS: ANION GAP 9.4 mmol/L (8-16); CALCIUM 8.8 mg/dL (8.5-10.1); CARBON DIOXIDE 33.1 mmol/L (21.0-32.0); PHOSPHOROUS 3.6 mg/dL (2.5-4.9)
[2018-11-27 04:55] LABS: CREATININE - SERUM 3.7 mg/dL (0.6-1.3); POTASSIUM - SERUM 3.5 mmol/L (3.5-5.1)
--- NOTE | 2018-11-27 06:50 | NUR ---
PT RESTING WITH EYES CLOSED AHD CHEST RISING. EASILY AWOKEN TO VERBAL STIMULI. NO S/S OF DISTRESS. CALL LIGHT IN REACH. WILL CONTINUE TO OBSERVE.
--- NOTE | 2018-11-27 08:25 | NUR ---
BP 179/83. APRESOLINE 10MG IV GIVEN PER ORDERS.
--- NOTE | 2018-11-27 09:30 | NUR ---
NUTRITION F//U RENAL ADA DIET. POOR PO INTAKE PER NURSING REPORT. PRIMARILY JELLO. WILL CONTINUE TO PROVIDE CURRENT DIET, MONITOR PO INTAKE. MAY REQUIRE NUTRITION SUPPORT IF PO DOES NOT IMPROVE IN [address] FOLLOWING
--- NOTE | 2018-11-27 09:45 | NUR ---
PT FRUSTRATED THAT HE CAN'T GET A HOLD OF ANYBODY WITH HIS PHONE.
--- NOTE | 2018-11-27 10:01 | NUR ---
PULLED UP AND REPOSITIONED FOR COMFORT.
--- NOTE | 2018-11-27 11:30 | NUR ---
CHG BATH GIVEN. COMPLETE LINEN CHANGE PROVIDED. HENDERSON CARE PROVIDED. HENDERSON CATHETER CLAMPED AT THIS TIME. BLADDER TRAINING ORDERED BY DR. MYERS. PT WAS ABLE TO SPEAK TO HIS SON VIA CELL PHONE. WILL CONTINUE TO MONITOR.
--- NOTE | 2018-11-27 12:45 | NUR ---
HENDERSON UNCLAMPED AT THIS TIME.
--- NOTE | 2018-11-27 14:00 | NUR ---
PT ARRIVED TO FLOOR VIA BED. BED ALARM ON. CALL LIGHT WITHIN REACH. DENIES ANY NEEDS AT THIS TIME, WILL CONT TO FOLLOW POC
--- NOTE | 2018-11-27 14:00 | NUR ---
HENDERSON CATHETER CLAMPED AT THIS TIME.
--- NOTE | 2018-11-27 14:01 | NUR ---
DR. GARZA SPOKE WITH PATIENT REGARDING PROGRESS. PT CAN TRANSFER TO FLOOR WHEN ROOM IS AVAILABLE. PT IN TEARS BECAUSE HE MISSES HIS GRANDKIDS. WILL CONTINUE TO MONITOR.
--- NOTE | 2018-11-27 14:33 | NUR ---
PT WILL BE TRANSFERRED TO ROOM 2137. REPORT CALLED. FAMILY NOTIFIED THAT PT IS BEING TRANSFERRED.
--- NOTE | 2018-11-27 14:56 | NUR ---
PT TRANFERRED TO ROOM 2137 VIA BED. PERSONAL BELONGINGS INCLUDING CLOTHES AND CELL PHONE SENT WITH PT.
--- NOTE | 2018-11-27 17:00 | NUR ---
HENDERSON CATHETER REMOVED WITH CATHETER TIP INTACT VIA NURSE DRIVEN PROTOCOL
--- NOTE | 2018-11-27 19:15 | NUR ---
AROUSES BREIFLY AND DENIES NEEDS AT THIS TIME PT EXPRESSES WISHES TO BE LEFT ALONE BED IS LOW AND LOCKED SRX2 CALL LIGHT IS WITH PT RESP EVEN AND UNLABORED
[2018-11-28] VITALS: BP 152/58
[2018-11-28 04:00] VITALS: BP 128/53
[2018-11-28 05:31] LABS: ANION GAP 12.8 mmol/L (8-16); CALCIUM 8.7 mg/dL (8.5-10.1); CARBON DIOXIDE 31.5 mmol/L (21.0-32.0); CREATININE - SERUM 2.9 mg/dL (0.6-1.3); PHOSPHOROUS 3.4 mg/dL (2.5-4.9); POTASSIUM - SERUM 3.3 mmol/L (3.5-5.1); URIC ACID 6.7 mg/dL (2.6-7.2)
[2018-11-28 05:39] LABS: BASOPHILS 0.1 % (0-2); EOSINOPHILS 0.6 % (0-7); HEMATOCRIT 40.7 % (42.0-54.0); HEMOGLOBIN 13.4 g/dL (13.5-17.5); IMMATURE GRANULOCYTES 0.3 % (0-5); LYMPHOCYTES 13.5 % (15-50); MCH 29.1 pg (26.0-34.0); MCHC 32.9 g/dL (31.0-37.0); MCV 88.3 fL (80.0-100.0); MEAN PLATELET VOLUME 10.6 fL (7.4-10.4); MONOCYTES 12.4 % (2-11); NEUTROPHILS 73.1 % (40-80); PLATELET COUNT 258 10x3/uL (130-400); RBC 4.61 10x6/uL (4.20-6.10); RDW 13.1 % (11.5-14.5)
[2018-11-28 05:43] LABS: WBC 17.9 10x3/uL (4.8-10.8)
--- NOTE | 2018-11-28 07:15 | NUR ---
REPORT RECEIVED. WILL CONTINUE WITH POC. PT CURRENTLY SITTNG IN CHAIR. CALL LIGHT W/I REACH. PT IS AAO AND UP WITH ASSIST. RR EVEN ADN UNLABORED ON 2L . PLASMALYTE INFUSING @50ML/HR VIA L.WRIST PIV. NO S/S OF DISTRESS NOTED. SCDS ON AND WORKING. NO S/S OF DISTRESS NOTED. PT DENIES ANY NEEDS. WILL CTM.
[2018-11-28 09:29] VITALS: BP 155/57
[2018-11-28 12:13] VITALS: BP 111/49
--- NOTE | 2018-11-28 12:54 | NUR ---
I have reviewed this patient and I concur with the Shift Assessment completed by the Licensed Practical Nurse today this shift.
--- NOTE | 2018-11-28 13:15 | NUR ---
PREVIOUS PIV INFILTRATED. REMOVED PIV WITH CATHETER TIP FULLY INTACT. WILL CTM.
--- NOTE | 2018-11-28 14:44 | MORECARE ---
CASE MANAGEMENT DISCHARGE SUMMARY PATIENT: STAR BAWJA UNIT: [id number] ADM DATE: 11/23/18 AGE: 77 : 42 SEX: M ROOM/BED: D.9569 AUTHOR: LEBRON,DOC PHYSICIAN: REFERRING PHYSICIAN: CHITRA GARZA MD DATE OF SERVICE: 11/28/18 Discharge Plan Patient Name: STAR BAJWA Facility: [facility]:[place] : 1940 Planned Disposition: Assisted Facility Anticipated Discharge Date: Discharge Date: Expected LOS: Initial Reviewer: [email or web address] Initial Review Date: 11/23/2018 Generated: 11/28/18 3:44 pm DCP- Discharge Planning Updated by [email or web address]: Jaylyn Davenport on 11/24/18 1:[address] Patient Name: STAR BAJWA Admission Status: ER Accout number: [id number] Admission Date: 11-23-2018 : 1940 Admission Diagnosis: Attending: CHITRA GARZA Current LOS: 1 Anticipated DC Date: Planned Disposition: Primary Insurance: MEDICARE A & B Discharge Planning Comments: CM met with patient at bedside after explaining CM role and obtaining verbal consent. Patient lives at home alone where he is independent with his care and plans to return there upon discharge. Patient is very difficult to follow in his communication. Patient is speaking in circles and having trouble expressing what he is trying to say. Patient states he is . CM was able to get son's phone number from ER records. CM discussed availability / needs of home health and medical equipment. Patient states he may need some help at home.Patient denies any discharge needs at this time. Patient states he will have his family drive him home upon discharge. CM will re-eval once patients thought process is clearer. Patient will most likely need rehab / snf / or at the least HH. CM will continue to follow and assist as needed with discharge planning / needs. Poultry Slaughterer: Jaylyn Davenport DCPIA - Discharge Planning Initial Assessment Updated by [email or web address]: Jaylyn Davenport on 11/24/18 2:18 pm * PCP ALEX MONTERO * Pharmacy [facility] * Preadmission Environment Home Alone * ADLs Independent * Other Equipment WALKER , CANES, BSC * List name and contact numbers for known caregivers / representatives who currently or will assist patient after discharge: PAULIE BAJWA - [facility] - [phone] * Verbal permission to speak to the caregivers and representatives has been obtained from the patient. Yes * Community resources currently utilized None * Additional services required to return to the preadmission environment? No * Can the patient safely return to the preadmission environment? Yes * Has this patient been hospitalized within the prior 30 days at any hospital? No External Providers External Provider: [facility] Next Contact Date: 11/28/2018 Service Request Date: Service Type: Resolution: Reviewer: Comments: Coverage Notice Reviewer: [id number] - Heladio Schaefer Notice Issued Date-Time: 11/28/2018 11:55 Notice Type: Patient Choice Letter Notice Delivered To: Patient Relationship to Patient: Travertine Installer Name: Delivery Method: HAND - Hand Delivered Niki Days: Prior Verbal Notification: Recipient Understood Notice: Yes Recipient Signature: Yes Med Rec Note Co-signed by Attending: Coverage Notice Comment: [facility] DP export: 11/24/18 1:33 Patient Name: STAR BAJWA Page 13437 at 1444 All edits/amendments must be made on the electronic document DICTATION DATE: 11/28/181443 PARIMUTUEL CLERK: CL 11/28/181443 RPT#: [id number] DC DATE: STATUS: ADM IN [facility] [address] [place] [address] END OF REPORT
--- NOTE | 2018-11-28 15:01 | MORECARE ---
CASE MANAGEMENT DISCHARGE SUMMARY PATIENT: STAR BAJWA UNIT: [id number] ADM DATE: 11/23/18 AGE: 77 : 42 SEX: M ROOM/BED: D.2137 AUTHOR: LEBRON,DOC PHYSICIAN: REFERRING PHYSICIAN: CHITRA GARZA MD DATE OF SERVICE: 11/28/18 Discharge Plan Patient Name: STAR BAJWA Facility: [facility]:[place] : 1940 Planned Disposition: [facility]ci Facility Anticipated Discharge Date: Discharge Date: Expected LOS: Initial Reviewer: [id number] Initial Review Date: 11/23/2018 Generated: 11/28/18 4:01 pm Comments DCP- Discharge Planning Updated by [email or web address]: Heladio Schaefer on 11/28/18 1:[address] Patient Name: STAR BAJWA Encounter No: [id number] : 1940 Primary Insurance: MEDICARE A & B Anticipated DC Date: Planned Disposition: [facility]ci Facility External Planned Provider: [facility], MEDICARE REHAB BED DCP follow-up note: CM MET WITH PT IN ROOM TO DISCUSS DISCHARGE NEEDS AND PLANNING. CM DISCUSSED AVAILABILITY OF HOME HEALTH, REHAB SERVICES AND MEDICAL EQUIPMENT. PT THINKS HE NEEDS REHAB. CM DISCUSSED REHAB PROVIDERS, LOCATIONS AND SERVICES. PT HAS BEEN TO [place] AFTER KNEE REPLACEMENT SEVERAL YEARS AGO AND WOULD LIKE REFERRED THERE. CHOICE SIGNED. CM CALLED [facility] [place], , NOTIFIED OF REFERRAL. CM FAXED REFERRAL TO [facility], . CM WAITING [facility] NICOLAS Warren DCP- Discharge Planning Updated by [email or web address]: Jaylyn Davenport on 11/24/18 1:[address] Patient Name: STAR BAJWA Admission Status: ER Accout number: [id number] Admission Date: 11-23-2018 : 1940 Admission Diagnosis: Attending: CHITRA GARZA Current LOS: 1 Anticipated DC Date: Planned Disposition: Primary Insurance: MEDICARE A & B Discharge Planning Comments: CM met with patient at bedside after explaining CM role and obtaining verbal consent. Patient lives at home alone where he is independent with his care and plans to return there upon discharge. Patient is very difficult to follow in his communication. Patient is speaking in circles and having trouble expressing what he is trying to say. Patient states he is . CM was able to get son's phone number from ER records. CM discussed availability / needs of home health and medical equipment. Patient states he may need some help at home.Patient denies any discharge needs at this time. Patient states he will have his family drive him home upon discharge. CM will re-eval once patients thought process is clearer. Patient will most likely need rehab / snf / or at the least HH. CM will continue to follow and assist as needed with discharge planning / needs. Consulting Marine Engineer: Jaylyn GARCIAA - Discharge Planning Initial Assessment Updated by [id number]: Jaylyn Davenport on 11/24/18 2:18 pm * PCP ALEX MONTERO * Pharmacy [facility] * Preadmission Environment Home Alone * ADLs Independent * Other Equipment WALKER , CANES, BSC * List name and contact numbers for known caregivers / representatives who currently or will assist patient after discharge: PAULIE BAJWA - [facility] - [phone] * Verbal permission to speak to the caregivers and representatives has been obtained from the patient. Yes * Community resources currently utilized None * Additional services required to return to the preadmission environment? No * Can the patient safely return to the preadmission environment? Yes * Has this patient been hospitalized within the prior 30 days at any hospital? No Coverage Notice Reviewer: [id number] - Heladio Schaefer Notice Issued Date-Time: 11/28/2018 11:55 Notice Type: Patient Choice Letter Notice Delivered To: Patient Relationship to Patient: Brake Specialist Name: Delivery Method: HAND - Hand Delivered Niki Days: Prior Verbal Notification: Recipient Understood Notice: Yes Recipient Signature: Yes Med Rec Note Co-signed by Attending: Coverage Notice Comment: [facility] Last DP export: 11/28/18 1:44 Patient Name: STAR BAJWA Page 53857 at 1501 All edits/amendments must be made on the electronic document DICTATION DATE: 11/28/18 1501 RISK REDUCTION COUNSELOR: CL 11/28/18 1501 RPT#: [id number] DC DATE: STATUS: ADM IN [facility] [address] [facility] [place] [id number] END OF REPORT
[2018-11-28 16:46] VITALS: BP 151/65
--- NOTE | 2018-11-28 19:20 | NUR ---
SITTING ON BEDSIDE FULLY DRESSED AND DENIES NEEDS PT STATES IM FINE REFUSES EXAM AT THIS TIME BED LOW AND LOCKED
[2018-11-28 20:35] VITALS: BP 171/57
[2018-11-29] VITALS: BP 155/47
[2018-11-29 04:30] VITALS: BP 147/48
[2018-11-29 07:08] LABS: BASOPHILS 0.2 % (0-2); EOSINOPHILS 2.1 % (0-7); HEMATOCRIT 38.2 % (42.0-54.0); HEMOGLOBIN 12.9 g/dL (13.5-17.5); IMMATURE GRANULOCYTES 0.5 % (0-5); LYMPHOCYTES 14.8 % (15-50); MCH 29.1 pg (26.0-34.0); MCHC 33.8 g/dL (31.0-37.0); MEAN PLATELET VOLUME 10.6 fL (7.4-10.4); MONOCYTES 13.1 % (2-11); NEUTROPHILS 69.3 % (40-80); PLATELET COUNT 224 10x3/uL (130-400); RBC 4.43 10x6/uL (4.20-6.10); RDW 13.1 % (11.5-14.5)
[2018-11-29 07:09] LABS: WBC 13.1 10x3/uL (4.8-10.8)
[2018-11-29 07:10] LABS: MCV 86.2 fL (80.0-100.0)
[2018-11-29 07:18] LABS: ANION GAP 11.4 mmol/L (8-16); CALCIUM 8.7 mg/dL (8.5-10.1); CARBON DIOXIDE 30.4 mmol/L (21.0-32.0); PHOSPHOROUS 3.7 mg/dL (2.5-4.9)
[2018-11-29 07:20] LABS: CREATININE - SERUM 2.1 mg/dL (0.6-1.3)
[2018-11-29 07:21] LABS: POTASSIUM - SERUM 2.8 mmol/L (3.5-5.1)
--- NOTE | 2018-11-29 08:15 | NUR ---
PT RESTING IN BED WITH EYES OPEN CALL LIGHT IN REACH NO PROBLEMS WILL MONITER
[2018-11-29 09:13] VITALS: BP 135/58
[2018-11-29 13:36] VITALS: BP 147/67
--- NOTE | 2018-11-29 15:08 | NUR ---
I have reviewed this patient and I concur with the Shift Assessment completed by the Licensed Practical Nurse today this shift.
--- NOTE | 2018-11-29 16:40 | MORECARE ---
CASE MANAGEMENT DISCHARGE SUMMARY PATIENT: STAR BAJWA UNIT: [id number] ADM DATE: 11/23/18 AGE: 77 : 42 SEX: M ROOM/BED: D.2137 AUTHOR: LEBRON,DOC PHYSICIAN: REFERRING PHYSICIAN: CHITRA GARZA MD DATE OF SERVICE: 11/29/18 Discharge Plan Patient Name: STAR BAJWA Facility: [facility]:[place] : 1940 Planned Disposition: Fdc Facility Anticipated Discharge Date: 11/30/18 Discharge Date: Expected LOS: 7 Initial Reviewer: [id number] Initial Review Date: 11/23/2018 Generated: 11/29/18 5:39 pm Comments DCP- Discharge Planning Updated by [email or web address]: Heladio Schaefer on 11/28/18 1:[address] Patient Name: STAR BAJWA Encounter No: [id number] : 1940 Primary Insurance: MEDICARE A & B Anticipated DC Date: Planned Disposition: Fdc Facility External Planned Provider: [facility], MEDICARE REHAB BED DCP follow-up note: CM MET WITH PT IN ROOM TO DISCUSS DISCHARGE NEEDS AND PLANNING. CM DISCUSSED AVAILABILITY OF HOME HEALTH, REHAB SERVICES AND MEDICAL EQUIPMENT. PT THINKS HE NEEDS REHAB. CM DISCUSSED REHAB PROVIDERS, LOCATIONS AND SERVICES. PT HAS BEEN TO [place] AFTER KNEE REPLACEMENT SEVERAL YEARS AGO AND WOULD LIKE REFERRED THERE. CHOICE SIGNED. CM CALLED [facility] [place], , NOTIFIED OF REFERRAL. CM FAXED REFERRAL TO [facility], . [facility] NICOLAS Warren DCP- Discharge Planning Updated by [id number]: Jaylyn Davenport on 11/24/18 1:[address] Patient Name: STAR BAJWA Admission Status: ER Accout number: [id number] Admission Date: 11-23-2018 : 1940 Admission Diagnosis: Attending: CHITRA GARZA Current LOS: 1 Anticipated DC Date: Planned Disposition: Primary Insurance: MEDICARE A & B Discharge Planning Comments: CM met with patient at bedside after explaining CM role and obtaining verbal consent. Patient lives at home alone where he is independent with his care and plans to return there upon discharge. Patient is very difficult to follow in his communication. Patient is speaking in circles and having trouble expressing what he is trying to say. Patient states he is . CM was able to get son's phone number from ER records. CM discussed availability / needs of home health and medical equipment. Patient states he may need some help at home.Patient denies any discharge needs at this time. Patient states he will have his family drive him home upon discharge. CM will re-eval once patients thought process is clearer. Patient will most likely need rehab / snf / or at the least HH. CM will continue to follow and assist as needed with discharge planning / needs. Corporate Strategy Intern: Jaylyn WOOTEN - Discharge Planning Initial Assessment Updated by [email or web address]: Jaylyn Davenport on 11/24/18 2:18 pm * PCP ALEX MONTERO * Pharm[facility] * Preadmission Environment Home Alone * ADLs Independent * Other Equipment WALKER , CANES, BSC * List name and contact numbers for known caregivers / representatives who currently or will assist patient after discharge: PAULIE BAJWA - [facility] - [phone] * Verbal permission to speak to the caregivers and representatives has been obtained from the patient. Yes * Community resources currently utilized None * Additional services required to return to the preadmission environment? No * Can the patient safely return to the preadmission environment? Yes * Has this patient been hospitalized within the prior 30 days at any hospital? No Coverage Notice Reviewer: [id number] - Heladio Schaefer Notice Issued Date-Time: 11/28/2018 11:55 Notice Type: Patient Choice Letter Notice Delivered To: Patient Relationship to Patient: Carton Making Machine Operator Name: Delivery Method: HAND - Hand Delivered Niki Days: Prior Verbal Notification: Recipient Understood Notice: Yes Recipient Signature: Yes Med Rec Note Co-signed by Attending: Coverage Notice Comment: [facility] Last DP export: 11/28/18 2:01 Patient Name: STAR BAJWA Page [id number] at 1640 All edits/amendments must be made on the electronic document DICTATION DATE: 11/29/181638 BACK GRAY CLOTH WASHER: CL 11/29/181638 RPT#: [id number] DC DATE: STATUS: ADM IN [facility] [address] [place] [address] END OF REPORT
--- NOTE | 2018-11-29 17:00 | MORECARE ---
CASE MANAGEMENT DISCHARGE SUMMARY PATIENT: STAR BAJWA UNIT: [id number] ADM DATE: 11/23/18 AGE: 77 : 42 SEX: M ROOM/BED: D.2137 AUTHOR: NIKO DIANA PHYSICIAN: REFERRING PHYSICIAN: CHITRA GARZA MD DATE OF SERVICE: 11/29/18 Discharge Plan Patient Name: STAR BAJWA Facility: [facility]:[place] : 1940 Planned Disposition: Alf Facility Anticipated Discharge Date: 11/30/18 Discharge Date: Expected LOS: 7 Initial Reviewer: [id number] Initial Review Date: 11/23/2018 Generated: 11/29/18 6:00 pm Comments DCP- Discharge Planning Updated by [email or web address]: Heladio Schaefer on 11/29/18 3:[address] Patient Name: STAR BAJWA Encounter No: [id number] : 1940 Primary Insurance: MEDICARE A & B Anticipated DC Date: 11-30-2018 Planned Disposition: Alf Facility External Planned Provider: [facility], MEDICARE REHAB BED DCP follow-up note: CM RECEIVED CALL FROM LINDA LEMOS, , WHO ADVISED THAT [facility] WILL ACCEPT PT TOMORROW MORNING. CM LEFT MESSAGE FROM DR. GARZA IN HIS OFFICE NOTIFYING OF ACCEPTANCE FOR THE MORNING. CM NOTIFIED PT IN ROOM, PT IN AGREEMENT WITH REHAB AT [facility]. CM PROVIDED AND DISCUSSED IMPORTANT MESSAGE FROM MEDICARE. FOR DISCHARGE ON 11-30-18, FAX DISCHARGE INFORMATION TO [facility] AT [phone], NURSE REPORT TO BE CALLED TO [facility] AT [phone]. [facility] TO ARRANGE VAN TRANSPORTATION. Heladio Schaefer CASE MANAGEMENT DCP- Discharge Planning Updated by [email or web address]: Heladio Schaefer on 11/28/18 1:[address] Patient Name: STAR BAJWA Encounter No: [id number] : 1940 Primary Insurance: MEDICARE A & B Anticipated DC Date: Planned Disposition: Alf Facility External Planned Provider: [facility], MEDICARE REHAB BED DCP follow-up note: CM MET WITH PT IN ROOM TO DISCUSS DISCHARGE NEEDS AND PLANNING. CM DISCUSSED AVAILABILITY OF HOME HEALTH, REHAB SERVICES AND MEDICAL EQUIPMENT. PT THINKS HE NEEDS REHAB. CM DISCUSSED REHAB PROVIDERS, LOCATIONS AND SERVICES. PT HAS BEEN TO [facility] AFTER KNEE REPLACEMENT SEVERAL YEARS AGO AND WOULD LIKE REFERRED THERE. CHOICE SIGNED. CM CALLED [facility] [place], , NOTIFIED OF REFERRAL. CM FAXED REFERRAL TO [facility], . CM WAITING ADMISSION DETERMINATION FROM [facility]. Heladio Schaefer, CASE MANAGEMENT DCP- Discharge Planning Updated by [id number]: Jaylyn Davenport on 11/24/18 1:[address] Patient Name: STAR BAJWA Admission Status: ER Accout number: [id number] Admission Date: 11-23-2018 : 1940 Admission Diagnosis: Attending: CHITRA GARZA Current LOS: 1 Anticipated DC Date: Planned Disposition: Primary Insurance: MEDICARE A & B Discharge Planning Comments: CM met with patient at bedside after explaining CM role and obtaining verbal consent. Patient lives at home alone where he is independent with his care and plans to return there upon discharge. Patient is very difficult to follow in his communication. Patient is speaking in circles and having trouble expressing what he is trying to say. Patient states he is . CM was able to get son's phone number from ER records. CM discussed availability / needs of home health and medical equipment. Patient states he may need some help at home.Patient denies any discharge needs at this time. Patient states he will have his family drive him home upon discharge. CM will re-eval once patients thought process is clearer. Patient will most likely need rehab / snf / or at the least . CM will continue to follow and assist as needed with discharge planning / needs. Ventilation Worker: Jaylyn Davenport DCPIA - Discharge Planning Initial Assessment Updated by [email or web address]: Jaylyn Davenport on 11/24/18 2:18 pm * PCP ALEX MONTERO * Pharmacy [facility] * Preadmission Environment Home Alone * ADLs Independent * Other Equipment WALKER , CANES, BSC * List name and contact numbers for known caregivers / representatives who currently or will assist patient after discharge: PAULIE BAJWA - SON - [phone] * Verbal permission to speak to the caregivers and representatives has been obtained from the patient. Yes * Community resources currently utilized None * Additional services required to return to the preadmission environment? No * Can the patient safely return to the preadmission environment? Yes * Has this patient been hospitalized within the prior 30 days at any hospital? No Coverage Notice Reviewer: [id number] Jeff Schaefer Notice Issued Date-Time: 11/28/2018 11:55 Notice Type: Patient Choice Letter Notice Delivered To: Patient Relationship to Patient: Surgical Assistant Certified Name: Delivery Method: HAND - Hand Delivered Niki Days: Prior Verbal Notification: Recipient Understood Notice: Yes Recipient Signature: Yes Med Rec Note Co-signed by Attending: Coverage Notice Comment: [facility] Reviewer: [id number] Jeff Schaefer Notice Issued Date-Time: 11/29/2018 16:39 Notice Type: IM Discharge Notice Notice Delivered To: Patient Relationship to Patient: Surgical Assistant Certified Name: Delivery Method: HAND - Hand Delivered Niki Days: Prior Verbal Notification: Recipient Understood Notice: Yes Recipient Signature: Yes Med Rec Note Co-signed by Attending: Coverage Notice Comment: Last DP export: 11/29/18 3:40 Patient Name: STAR BAJWA Page 18208 at 1700 All edits/amendments must be made on the electronic document DICTATION DATE: 11/29/[address] REPORTER: CL 11/29/18 170 RPT#: [id number] DC DATE: STATUS: ADM IN [facility] [address] [place] [address] END OF REPORT
[2018-11-29 18:12] VITALS: BP 132/58
--- NOTE | 2018-11-29 18:35 | NUR ---
PT RESTING IN BED WITH EYES OPEN CALL LIGHT IN REACH WILL MONITER
--- NOTE | 2018-11-29 19:15 | NUR ---
EVENING ROUNDS COMPLETE. PATIENT ALERT AND ORIENTED. NO COMPLAINTS OF PAIN OR DISCOMFORT. DENIES HAVING ANY NEEDS AT THIS TIME. BED IN LOWEST POSITION. SIDE RAILS UP. CALL LIGHT IN REACH. WILL CONTINUE TO MONITOR.
[2018-11-29 20:00] VITALS: BP 139/57
[2018-11-29 20:39] LABS: APPEARANCE HAZY (CLEAR); BILIRUBIN NEGATIVE (NEGATIVE); COLOR YELLOW (YELLOW); GLUCOSE NEGATIVE (NEGATIVE); KETONE NEGATIVE (NEGATIVE); NITRITE NEGATIVE (NEGATIVE); PROTEIN TRACE mg/dL (NEGATIVE); SPECIFIC GRAVITY 1.015 (1.005-1.020); UROBILINOGEN NORMAL (NORMAL)
[2018-11-29 20:40] LABS: BACTERIA MANY /hpf (NEGATIVE); RED CELLS - URINE 0-5 /hpf (0-5); WHITE CELLS - URINE 25-50 /hpf (NEGATIVE)
[2018-11-30] VITALS: BP 138/69
[2018-11-30 04:00] VITALS: BP 152/57
--- NOTE | 2018-11-30 04:33 | NUR ---
PATIENT RESTING IN BED WITH EYES CLOSED. NO SIGNS OF DISTRESS. BED IN LOWEST POSITION. SIDE RAILS UP. CALL LIGHT IN REACH. WILL CONTINUE TO MONITOR.
[2018-11-30 05:39] LABS: ANION GAP 13.5 mmol/L (8-16); CALCIUM 8.6 mg/dL (8.5-10.1); CARBON DIOXIDE 26.9 mmol/L (21.0-32.0); CREATININE - SERUM 1.8 mg/dL (0.6-1.3); POTASSIUM - SERUM 3.4 mmol/L (3.5-5.1)
[2018-11-30 06:28] LABS: BASOPHILS 0.2 % (0-2); EOSINOPHILS 1.9 % (0-7); HEMATOCRIT 36.6 % (42.0-54.0); HEMOGLOBIN 12.2 g/dL (13.5-17.5); IMMATURE GRANULOCYTES 0.3 % (0-5); LYMPHOCYTES 15.6 % (15-50); MCHC 33.3 g/dL (31.0-37.0); MCV 87.1 fL (80.0-100.0); MEAN PLATELET VOLUME 10.7 fL (7.4-10.4); MONOCYTES 14.5 % (2-11); NEUTROPHILS 67.5 % (40-80); PLATELET COUNT 188 10x3/uL (130-400); RDW 13.2 % (11.5-14.5); WBC 11.7 10x3/uL (4.8-10.8)
--- NOTE | 2018-11-30 07:18 | NUR ---
REPORT RECEIVED. WILL CONTINUE WITH POC. PT CURRENTLY SITTING ON EDGE OF BED. CALL LIGHT W/I REACH. RR EVEN AND UNLABORED ON 2L 02. NO PIV NOTED. PT DENIES ANY NEEDS AT THIS TIME. NO S/S OF DISTRESS NOTED. WILL CTM.
[2018-11-30 10:44] VITALS: BP 161/66
[2018-11-30] MEDS ORDERED: GLUCOPHAGE500 MG PO (12:41)
[2018-11-30] MEDS ORDERED: LANTUS SOL100 UNIT/1 SC (12:42)
[2018-11-30] MEDS ORDERED: COZAAR50 MG PO (12:42)
[2018-11-30 13:42] VITALS: BP 159/75
--- NOTE | 2018-11-30 16:21 | NUR ---
I have reviewed this patient and I concur with the Shift Assessment completed by the Licensed Practical Nurse today this shift.
--- NOTE | 2018-11-30 17:32 | MORECARE ---
CASE MANAGEMENT DISCHARGE SUMMARY PATIENT: STAR BAJWA UNIT: [id number] ADM DATE: 11/23/18 AGE: 77 : 42 SEX: M ROOM/BED: D.2137 AUTHOR: NIKO DIANA PHYSICIAN: REFERRING PHYSICIAN: CHITRA GARZA MD DATE OF SERVICE: 11/30/18 Discharge Plan Patient Name: STAR BAJWA Facility: [facility]:[place] : 1940 Planned Disposition: Fpc Facility Anticipated Discharge Date: 12/01/18 Discharge Date: Expected LOS: 8 Initial Reviewer: [id number] Initial Review Date: 11/23/2018 Generated: 11/30/18 6:32 pm Comments DCP- Discharge Planning Updated by [id number]: Heladio Schaefer on 11/30/18 4:[address] Patient Name: STAR BAJWA Encounter No: [id number] : 1940 Primary Insurance: MEDICARE A & B Anticipated DC Date: 12-01-2018 Planned Disposition: Fpc Facility External Planned Provider: [facility], MEDICARE REHAB BED DCP follow-up note: CM RECEIVED CALL FROM LINDA LEMOS OF [facility], [facility] CANNOT ACCEPT PT TODAY BUT CAN LEATHER LACER TOMORROW AT 0900AM. CM NOTIFIED DR. HUERTA AT [facility]. CM NOTIFIED PT. CM NOTIFIED SEWER PIPE OFFBEARER NURSE. CM FAXED DISCHARGE INFORMATION TO [facility] AT [phone]. FOR DISCHARGE ON 12-01-18, REPORT TO BE CALLED TO [facility] AT [phone]. [facility] TO ARRANGE VAN TRANSPORTATION FOR 0900AM, 12-01-18. Heladio Schaefer, CASE MANAGEMENT DCP- Discharge Planning Updated by [id number]: Heladio Schaefer on 11/29/18 3:[address] Patient Name: STAR BAJWA Encounter No: [id number] : 1940 Primary Insurance: MEDICARE A & B Anticipated DC Date: 11-30-2018 Planned Disposition: Fpc Facility External Planned Provider: [facility], MEDICARE REHAB BED DCP follow-up note: CM RECEIVED CALL FROM LINDA LEMOS, , WHO ADVISED THAT [facility] WILL ACCEPT PT TOMORROW MORNING. CM LEFT MESSAGE FROM DR. GARZA IN HIS OFFICE NOTIFYING OF ACCEPTANCE FOR THE MORNING. CM NOTIFIED PT IN ROOM, PT IN AGREEMENT WITH REHAB AT [facility]. CM PROVIDED AND DISCUSSED IMPORTANT MESSAGE FROM MEDICARE. FOR DISCHARGE ON 11-30-18, FAX DISCHARGE INFORMATION TO [facility] AT [phone], NURSE REPORT TO BE CALLED TO [facility] AT [phone]. [facility] TO [facility]RANGE VAN TRANSPORTATION. NICOLAS Warren DCP- Discharge Planning Updated by [id number]: Heladio Schaefer on 11/28/18 1:[address] Patient Name: STAR BAJWA Encounter No: [id number] : 1940 Primary Insurance: MEDICARE A & B Anticipated DC Date: Planned Disposition: Fpc Facility External Planned Provider: [facility], MEDICARE REHAB BED DCP follow-up note: CM MET WITH PT IN ROOM TO DISCUSS DISCHARGE NEEDS AND PLANNING. CM DISCUSSED AVAILABILITY OF HOME HEALTH, REHAB SERVICES AND MEDICAL EQUIPMENT. PT THINKS HE NEEDS REHAB. CM DISCUSSED REHAB PROVIDERS, LOCATIONS AND SERVICES. PT HAS BEEN TO [facility] AFTER KNEE REPLACEMENT SEVERAL YEARS AGO AND WOULD LIKE REFERRED THERE. CHOICE SIGNED. CM CALLED [facility], , NOTIFIED OF REFERRAL. CM FAXED REFERRAL TO [facility], . CM WAITING ADMISSION DETERMINATION FROM [facility] AND [facility]. NICOLAS Warren DCP- Discharge Planning Updated by [id number]: Jaylyn Davenport on 11/24/18 1:[address] Patient Name: STAR BAJWA Admission Status: ER Accout number: [id number] Admission Date: 11-23-2018 : 1940 Admission Diagnosis: Attending: CHITRA GARZA Current LOS: 1 Anticipated DC Date: Planned Disposition: Primary Insurance: MEDICARE A & B Discharge Planning Comments: CM met with patient at bedside after explaining CM role and obtaining verbal consent. Patient lives at home alone where he is independent with his care and plans to return there upon discharge. Patient is very difficult to follow in his communication. Patient is speaking in circles and having trouble expressing what he is trying to say. Patient states he is . CM was able to get son's phone number from ER records. CM discussed availability / needs of home health and medical equipment. Patient states he may need some help at home.Patient denies any discharge needs at this time. Patient states he will have his family drive him home upon discharge. CM will re-eval once patients thought process is clearer. Patient will most likely need rehab / snf / or at the least HH. CM will continue to follow and assist as needed with discharge planning / needs. Machine Hostler: Jaylyn WOOTEN - Discharge Planning Initial Assessment Updated by [id number]: Jaylyn Davenport on 11/24/18 2:18 pm * PCP ALEX MONTERO * Pharmacy [facility] * Preadmission Environment Home Alone * ADLs Independent * Other Equipment WALKER , CANES, BSC * List name and contact numbers for known caregivers / representatives who currently or will assist patient after discharge: PAULIE BAJWA - SERG - [phone] * Verbal permission to speak to the caregivers and representatives has been obtained from the patient. Yes * Community resources currently utilized None * Additional services required to return to the preadmission environment? No * Can the patient safely return to the preadmission environment? Yes * Has this patient been hospitalized within the prior 30 days at any hospital? No Coverage Notice Reviewer: [id number] Jeff Schaefer Notice Issued Date-Time: 11/28/2018 11:55 Notice Type: Patient Choice Letter Notice Delivered To: Patient Relationship to Patient: Hot Billet Shear Operator Name: Delivery Method: HAND - Hand Delivered Niki Days: Prior Verbal Notification: Recipient Understood Notice: Yes Recipient Signature: Yes Med Rec Note Co-signed by Attending: Coverage Notice Comment: [facility] Reviewer: [id number] Jeff Schaefer Notice Issued Date-Time: 11/29/2018 16:39 Notice Type: IM Discharge Notice Notice Delivered To: Patient Relationship to Patient: Hot Billet Shear Operator Name: Delivery Method: HAND - Hand Delivered Niki Days: Prior Verbal Notification: Recipient Understood Notice: Yes Recipient Signature: Yes Med Rec Note Co-signed by Attending: Coverage Notice Comment: Last DP export: 11/29/18 4:00 Patient Name: STAR BAJWA Page 98160 at 1732 All edits/amendments must be made on the electronic document DICTATION DATE: 11/30/181731 PROTECTION SPECIALIST: CL 11/30/181731 RPT#: [id number] DC DATE: STATUS: ADM IN [facility] [address] [place] [address] END OF REPORT
--- NOTE | 2018-11-30 17:59 | MORECARE ---
CASE MANAGEMENT DISCHARGE SUMMARY PATIENT: STAR BAJWA UNIT: [id number] ADM DATE: 11/23/18 AGE: 77 : 42 SEX: M ROOM/BED: D.2137 AUTHOR: NIKO DIANA PHYSICIAN: REFERRING PHYSICIAN: CHITRA GARZA MD DATE OF SERVICE: 11/30/18 Discharge Plan Patient Name: STAR BAJWA Facility: [facility]:[place] : 1940 Planned Disposition: Prison Facility Anticipated Discharge Date: 12/01/18 Discharge Date: Expected LOS: 8 Initial Reviewer: [id number] Initial Review Date: 11/23/2018 Generated: 11/30/18 6:59 pm Comments DCP- Discharge Planning Updated by [id number]: Heladio Schaefer on 11/30/18 4:[address] Patient Name: STAR BAJWA Encounter No: [id number] : 1940 Primary Insurance: MEDICARE A & B Anticipated DC Date: 12-01-2018 Planned Disposition: Prison Facility External Planned Provider: [facility], MEDICARE REHAB BED DCP follow-up note: CM RECEIVED CALL FROM LINDA LEMOS OF [facility], [facility] CANNOT ACCEPT PT TODAY BUT CAN BUSINESS ACCOUNT MANAGER TOMORROW AT 0900AM. CM NOTIFIED DR. HUERTA AT [facility]. CM NOTIFIED PT. CM NOTIFIED MAGNETIC TESTING TECHNICIAN NURSE. CM FAXED DISCHARGE INFORMATION TO [facility] AT [phone]. FOR DISCHARGE ON 12-01-18, REPORT TO BE CALLED TO [facility] AT [phone]. [facility] TO ARRANGE VAN TRANSPORTATION FOR 0900AM, 12-01-18. Heladio Schaefer, CASE MANAGEMENT DCP- Discharge Planning Updated by [id number]: Heladio Schaefer on 11/29/18 3:[address] Patient Name: STAR BAJWA Encounter No: [id number] : 1940 Primary Insurance: MEDICARE A & B Anticipated DC Date: 11-30-2018 Planned Disposition: Prison Facility External Planned Provider: [facility], MEDICARE REHAB BED DCP follow-up note: CM RECEIVED CALL FROM LINDA LEMOS, , WHO ADVISED THAT [facility] WILL ACCEPT PT TOMORROW MORNING. CM LEFT MESSAGE FROM DR. GARZA IN HIS OFFICE NOTIFYING OF ACCEPTANCE FOR THE MORNING. CM NOTIFIED PT IN ROOM, PT IN AGREEMENT WITH REHAB AT [facility]. CM PROVIDED AND DISCUSSED IMPORTANT MESSAGE FROM MEDICARE. FOR DISCHARGE ON 11-30-18, FAX DISCHARGE INFORMATION TO [facility] AT [phone], NURSE REPORT TO BE CALLED TO [facility] AT [phone]. [facility] TO ARRANGE VAN TRANSPORTATION. NICOLAS Warren DCP- Discharge Planning Updated by [id number]: Heladio Schaefer on 11/28/18 1:[address] Patient Name: STAR BAJWA Encounter No: [id number] : 1940 Primary Insurance: MEDICARE A & B Anticipated DC Date: Planned Disposition: Prison Facility External Planned Provider: [facility], MEDICARE REHAB BED DCP follow-up note: CM MET WITH PT IN ROOM TO DISCUSS DISCHARGE NEEDS AND PLANNING. CM DISCUSSED AVAILABILITY OF HOME HEALTH, REHAB SERVICES AND MEDICAL EQUIPMENT. PT THINKS HE NEEDS REHAB. CM DISCUSSED REHAB PROVIDERS, LOCATIONS AND SERVICES. PT HAS BEEN TO [place] AFTER KNEE REPLACEMENT SEVERAL YEARS AGO AND WOULD LIKE REFERRED THERE. CHOICE SIGNED. CM CALLED [facility] [place] [facility], , NOTIFIED OF REFERRAL. CM FAXED REFERRAL TO [facility], . CM WAITING ADMISSION DETERMINATION FROM [facility] AND [facility]. NICOLAS Warren DCP- Discharge Planning Updated by [id number]: Jaylyn Davenport on 11/24/18 1:[address] Patient Name: STAR BAJWA Admission Status: ER Accout number: [id number] Admission Date: 11-23-2018 : 1940 Admission Diagnosis: Attending: CHITRA GARZA Current LOS: 1 Anticipated DC Date: Planned Disposition: Primary Insurance: MEDICARE A & B Discharge Planning Comments: CM met with patient at bedside after explaining CM role and obtaining verbal consent. Patient lives at home alone where he is independent with his care and plans to return there upon discharge. Patient is very difficult to follow in his communication. Patient is speaking in circles and having trouble expressing what he is trying to say. Patient states he is . CM was able to get son's phone number from ER records. CM discussed availability / needs of home health and medical equipment. Patient states he may need some help at home.Patient denies any discharge needs at this time. Patient states he will have his family drive him home upon discharge. CM will re-eval once patients thought process is clearer. Patient will most likely need rehab / snf / or at the least HH. CM will continue to follow and assist as needed with discharge planning / needs. Carton Machine Operator: Jaylyn WOOTEN - Discharge Planning Initial Assessment Updated by [id number]: Jaylyn Davenport on 11/24/18 2:18 pm * PCP ALEX MONTERO * Pharm[facility] * Preadmission Environment Home Alone * ADLs Independent * Other Equipment WALKER , CANES, BSC * List name and contact numbers for known caregivers / representatives who currently or will assist patient after discharge: PAULIE ULRICH - [phone] * Verbal permission to speak to the caregivers and representatives has been obtained from the patient. Yes * Community resources currently utilized None * Additional services required to return to the preadmission environment? No * Can the patient safely return to the preadmission environment? Yes * Has this patient been hospitalized within the prior 30 days at any hospital? No Coverage Notice Reviewer: [id number] Jeff Schaefer Notice Issued Date-Time: 11/28/2018 11:55 Notice Type: Patient Choice Letter Notice Delivered To: Patient Relationship to Patient: Ceiling Insulation Blower Name: Delivery Method: HAND - Hand Delivered Niki Days: Prior Verbal Notification: Recipient Understood Notice: Yes Recipient Signature: Yes Med Rec Note Co-signed by Attending: Coverage Notice Comment: [facility] Reviewer: [id number] Jeff Schaefer Notice Issued Date-Time: 11/29/2018 16:39 Notice Type: IM Discharge Notice Notice Delivered To: Patient Relationship to Patient: Ceiling Insulation Blower Name: Delivery Method: HAND - Hand Delivered Niki Days: Prior Verbal Notification: Recipient Understood Notice: Yes Recipient Signature: Yes Med Rec Note Co-signed by Attending: Coverage Notice Comment: Last DP export: 11/30/18 4:32 Patient Name: STAR BAJWA Page 83789 at 1757 All edits/amendments must be made on the electronic document DICTATION DATE: 11/30/181758 SPOOL HAULER: DM 11/30/181758 RPT#: [id number] DC DATE: STATUS: ADM IN [facility] [address] [place] [address] END OF REPORT
[2018-11-30 18:20] VITALS: BP 168/79
--- NOTE | 2018-11-30 19:15 | NUR ---
REPORT RECEIVED, WILL CONTINUE POC. PATIENT IS A/O, UP AD LUZ. NO S/S OF DISTRESS OBSERVED, RR EVEN AND UNLABORED ON 2L O2 VIA NC. PATIENT DENIES FURTHER NEEDS AT THIS TIME. CL IN REACH, BED LOCKED AND LOWERED. WILL CTM.
[2018-11-30 20:00] VITALS: BP 149/65
--- NOTE | 2018-11-30 21:30 | NUR ---
HS MEDS ADMINISTERED, PATIENT TOLERATED WELL. ARACELI HELD, BS 138
[2018-12-01] VITALS: BP 147/63
[2018-12-01 04:00] VITALS: BP 139/68
[2018-12-01 06:09] LABS: BASOPHILS 0.2 % (0-2); EOSINOPHILS 1.8 % (0-7); HEMOGLOBIN 12.8 g/dL (13.5-17.5); IMMATURE GRANULOCYTES 0.5 % (0-5); LYMPHOCYTES 19.2 % (15-50); MCH 29.1 pg (26.0-34.0); MCHC 33.7 g/dL (31.0-37.0); MCV 86.4 fL (80.0-100.0); MEAN PLATELET VOLUME 10.6 fL (7.4-10.4); MONOCYTES 17.7 % (2-11); NEUTROPHILS 60.6 % (40-80); PLATELET COUNT 214 10x3/uL (130-400); RDW 13.1 % (11.5-14.5); WBC 10.7 10x3/uL (4.8-10.8)
[2018-12-01 06:33] LABS: ANION GAP 13.1 mmol/L (8-16); CALCIUM 8.4 mg/dL (8.5-10.1); CARBON DIOXIDE 26.1 mmol/L (21.0-32.0); CREATININE - SERUM 1.6 mg/dL (0.6-1.3); POTASSIUM - SERUM 3.2 mmol/L (3.5-5.1)
--- NOTE | 2018-12-01 07:19 | NUR ---
REPORT RECEIVED. WILL CONTINUE WITH POC. PT CURRENTLY LYING ON RIGHT SIDE RESTING WITH EYES CLOSED. RR EVEN AND UNLABORED ON 2L 02. NO PIV NOTED. NO S/S OF DISTRESS NOTED. PT DENIES ANY NEEDS. WILL CTM.
[2018-12-01 08:58] VITALS: BP 140/77
--- NOTE | 2018-12-01 09:29 | NUR ---
PT DISCHARGED TO [facility]. PT SIGNED PROPER DISCHARGE INSTRUCTIONS AND REMOVED ALL VALUABLES FROM THE ROOM.
--- NOTE | 2018-12-04 09:17 | MORECARE ---
CASE MANAGEMENT DISCHARGE SUMMARY PATIENT: STAR BAJWA UNIT: [id number] ADM DATE: 11/23/18 AGE: 77 : 42 SEX: M ROOM/BED: D.2137 AUTHOR: NIKO DIANA PHYSICIAN: REFERRING PHYSICIAN: CHITRA GARZA MD DATE OF SERVICE: 12/04/18 Discharge Plan Patient Name: STAR BAJWA Facility: [facility]:[place] : 1940 Planned Disposition: Custodial Facility Anticipated Discharge Date: 12/01/18 Discharge Date: 12/01/2018 Expected LOS: 8 Initial Reviewer: [id number] Initial Review Date: 11/23/2018 Generated: 12/04/18 10:17 am Comments DCP- Discharge Planning Updated by [id number]: Heladio Schaefer on 11/30/18 4:[address] Patient Name: STAR BAJWA Encounter No: [id number] : 1940 Primary Insurance: MEDICARE A & B Anticipated DC Date: 12-01-2018 Planned Disposition: Custodial Facility External Planned Provider: [facility], MEDICARE REHAB BED DCP follow-up note: CM RECEIVED CALL FROM LINDA LEMOS OF [facility], [facility] CANNOT ACCEPT PT TODAY BUT CAN DRY KILN OPERATOR TOMORROW AT 0900AM. CM NOTIFIED DR. HUERTA AT [facility]. CM NOTIFIED PT. CM NOTIFIED INFORMATION SECURITY CONSULTANT NURSE. CM FAXED DISCHARGE INFORMATION TO [facility] AT [phone]. FOR DISCHARGE ON 12-01-18, REPORT TO BE CALLED TO [facility] AT [phone]. [facility] TO ARRANGE VAN TRANSPORTATION FOR 0900AM, 12-01-18. Heladio Schaefer, CASE MANAGEMENT DCP- Discharge Planning Updated by [id number]: Heladio Schaefer on 11/29/18 3:[address] Patient Name: STAR BAJWA Encounter No: [id number] : 1940 Primary Insurance: MEDICARE A & B Anticipated DC Date: 11-30-2018 Planned Disposition: Custodial Facility External Planned Provider: [facility], MEDICARE REHAB BED DCP follow-up note: CM RECEIVED CALL FROM LINDA LEMOS, , WHO ADVISED THAT [facility] WILL ACCEPT PT TOMORROW MORNING. CM LEFT MESSAGE FROM DR. GARZA IN HIS OFFICE NOTIFYING OF ACCEPTANCE FOR THE MORNING. CM NOTIFIED PT IN ROOM, PT IN AGREEMENT WITH REHAB AT [facility]. CM PROVIDED AND DISCUSSED IMPORTANT MESSAGE FROM MEDICARE. FOR DISCHARGE ON 11-30-18, FAX DISCHARGE INFORMATION TO [facility] AT [phone], NURSE REPORT TO BE CALLED TO [facility] AT [phone]. [facility] TO ARRANGE VAN TRANSPORTATION. NICOLAS Warren DCP- Discharge Planning Updated by [id number]: Heladio Schaefer on 11/28/18 1:[address] Patient Name: STAR BAJWA Encounter No: [id number] : 1940 Primary Insurance: MEDICARE A & B Anticipated DC Date: Planned Disposition: Custodial Facility External Planned Provider: [facility] DCP follow-up note: CM MET WITH PT IN ROOM TO DISCUSS DISCHARGE NEEDS AND PLANNING. CM DISCUSSED AVAILABILITY OF HOME HEALTH, REHAB SERVICES AND MEDICAL EQUIPMENT. PT THINKS HE NEEDS REHAB. CM DISCUSSED REHAB PROVIDERS, LOCATIONS AND SERVICES. PT HAS BEEN TO [facility] AFTER KNEE REPLACEMENT SEVERAL YEARS AGO AND WOULD LIKE REFERRED THERE. CHOICE SIGNED. CM CALLED [facility] FOR [facility], , NOTIFIED OF REFERRAL. CM FAXED REFERRAL TO [facility], . CM WAITING ADMISSION DETERMINATION FROM [facility]. NICOLAS Warren DCP- Discharge Planning Updated by [id number]: Jaylyn Davenport on 11/24/18 1:[address] Patient Name: STAR BAJWA Admission Status: ER Accout number: [id number] Admission Date: 11-23-2018 : 1940 Admission Diagnosis: Attending: CHITRA GARZA Current LOS: 1 Anticipated DC Date: Planned Disposition: Primary Insurance: MEDICARE A & B Discharge Planning Comments: CM met with patient at bedside after explaining CM role and obtaining verbal consent. Patient lives at home alone where he is independent with his care and plans to return there upon discharge. Patient is very difficult to follow in his communication. Patient is speaking in circles and having trouble expressing what he is trying to say. Patient states he is . CM was able to get son's phone number from ER records. CM discussed availability / needs of home health and medical equipment. Patient states he may need some help at home.Patient denies any discharge needs at this time. Patient states he will have his family drive him home upon discharge. CM will re-eval once patients thought process is clearer. Patient will most likely need rehab / snf / or at the least HH. CM will continue to follow and assist as needed with discharge planning / needs. Release Of Information Clerk: Jaylyn WOOTEN - Discharge Planning Initial Assessment Updated by [email or web address]: Jaylyn Davenport on 11/24/18 2:18 pm * PCP ALEX MONTERO * Pharmacy [facility] * Preadmission Environment Home Alone * ADLs Independent * Other Equipment WALKER , CANES, BSC * List name and contact numbers for known caregivers / representatives who currently or will assist patient after discharge: PAULIE BAJWA - SERG - [phone] * Verbal permission to speak to the caregivers and representatives has been obtained from the patient. Yes * Community resources currently utilized None * Additional services required to return to the preadmission environment? No * Can the patient safely return to the preadmission environment? Yes * Has this patient been hospitalized within the prior 30 days at any hospital? No Coverage Notice Reviewer: [id number] Jeff Schaefer Notice Issued Date-Time: 11/28/2018 11:55 Notice Type: Patient Choice Letter Notice Delivered To: Patient Relationship to Patient: Delivery Driver/Customer Service Name: Delivery Method: HAND - Hand Delivered Niki Days: Prior Verbal Notification: Recipient Understood Notice: Yes Recipient Signature: Yes Med Rec Note Co-signed by Attending: Coverage Notice Comment: [facility] Reviewer: [id number] Jeff Schaefer Notice Issued Date-Time: 11/29/2018 16:39 Notice Type: IM Discharge Notice Notice Delivered To: Patient Relationship to Patient: Delivery Driver/Customer Service Name: Delivery Method: HAND - Hand Delivered Niik Days: Prior Verbal Notification: Recipient Understood Notice: Yes Recipient Signature: Yes Med Rec Note Co-signed by Attending: Coverage Notice Comment: Last DP export: 11/30/18 4:59 Patient Name: STAR BAJWA Page 85143 at 0917 All edits/amendments must be made on the electronic document DICTATION DATE: 12/04/18916 BUSINESS TECHNOLOGY PROFESSOR: CL 12/04/18916 RPT#: [id number] DC DATE:12/01/18 STATUS: DIS IN [facility] [address] [place] [address] END OF REPORT
== END 2018-12-01 09:30 | DRG 682 ==
LOC: D.ER 15:17 → D.M2 17:04 → D.CVICU 17:04 → D.ICU 17:04 → D.CVICU 17:28 → D.M2 11-27 14:57
PROVIDERS: Family Medicine; Internal Medicine Nephrology; ADMIT Family Medicine; ATTEND Family Medicine
DX: N17.0 Acute kidney failure with tubular necrosis (principal); G93.41 Metabolic encephalopathy; I48.20 Chronic atrial fibrillation, unspecified; E11.9 Type 2 diabetes mellitus without complications; I10 Essential (primary) hypertension; E86.0 Dehydration; R41.82 Altered mental status, unspecified; D72.829 Elevated white blood cell count, unspecified; L98.9 Disorder of the skin and subcutaneous tissue, unspecified; E87.5 Hyperkalemia; E79.0 Hyperuricemia without signs of inflammatory arthritis and tophaceous disease; E66.01 Morbid (severe) obesity due to excess calories; R53.81 Other malaise

== ENCOUNTER 2019-06-04 16:25 | Inpatient (IN) | payer MEDICARE, BC ==
[~2019-06-04] VITALS: Ht 175.3 cm; Wt 125.0 kg
[~2019-06-04 16:25] MED LIST changes: +COZAAR50 MG PO; +LANTUS SOL100 UNIT/1 SC; +MORPHINE IMMEDI15 MG PO; -MS CONTIN15 MG PO
--- NOTE | 2019-06-04 17:12 | NUR ---
RECEIVED PT TO ROOM 2106 A DIRECT ADMIT. ORIENTED PT TO ROOM AND CALL LIGHT. WILL ASSESS PT AND START PLAN OF CARE.
[2019-06-04 17:29] VITALS: BP 129/53; BMI 42.5
[2019-06-04] MEDS ORDERED: LANTUS SC (18:14)
--- NOTE | 2019-06-04 19:15 | NUR ---
OX4 AT THIS TIME NEEDS SEEN TO LAB HERE WELL TO DRAW BLOOD IV SWITCHED TO 125 BED LOW AND LOCKED AND CALL LIGHT IS WITH PT
--- NOTE | 2019-06-04 20:00 | NUR ---
LUNGS ARE STILL CLEAR BUT PT HAS NOT URINATED I HAVE TURNED IV FLUIDS DOWN PT STATES HE TAKES LASIX AT HOME BID TO URINATE AND IT NOT ORDERED NOR ON MED REC..500 BOLUS IS IN I WILL WAIT A FEW HOURS BEFORE REINSERTING [facility]ERSON
[2019-06-04 22:09] VITALS: BP 114/51
[2019-06-05 00:54] VITALS: BP 120/48
[2019-06-05 05:05] VITALS: BP 123/57
[2019-06-05 05:37] LABS: BASOPHILS 0.1 % (0-2); EOSINOPHILS 0.7 % (0-7); HEMATOCRIT 38.1 % (42.0-54.0); HEMOGLOBIN 12.5 g/dL (13.5-17.5); IMMATURE GRANULOCYTES 0.4 % (0-5); LYMPHOCYTES 9.6 % (15-50); MCH 27.9 pg (26.0-34.0); MCHC 32.8 g/dL (31.0-37.0); MEAN PLATELET VOLUME 10.2 fL (7.4-10.4); MONOCYTES 9.9 % (2-11); NEUTROPHILS 79.3 % (40-80); PLATELET COUNT 204 10x3/uL (130-400); RBC 4.48 10x6/uL (4.20-6.10); RDW 14.2 % (11.5-14.5); WBC 19.3 10x3/uL (4.8-10.8)
[2019-06-05 05:42] LABS: ALBUMIN 2.4 g/dL (3.4-5.0); ANION GAP 12.5 mmol/L (8-16); BILIRUBIN - TOTAL 0.83 mg/dL (0.2-1.3); CALCIUM 7.7 mg/dL (8.5-10.1); CARBON DIOXIDE 27.5 mmol/L (21.0-32.0); CREATININE - SERUM 1.6 mg/dL (0.6-1.3); PROTEIN - SERUM 6.9 g/dL (6.4-8.2)
--- NOTE | 2019-06-05 07:05 | HP ---
PATIENT: STAR BAJWA MEDICAL RECORD: [id number] ACCOUNT: [id number] LOCATION:[address] : 44 ADMISSION DATE: 06/04/19 PCP: HERMELINDA BERNSTEIN MD HISTORY AND PHYSICAL EXAMINATION REASON FOR ADMISSION: Confusion, recent UTI. HISTORY OF PRESENT ILLNESS: The patient is a 78 male with history of type 2 diabetes mellitus, who was seen in the office 3 days ago for an urinary tract infection. He was somewhat confused and family was with him and requested outpatient therapy. He was noted to have UTI, blood sugar 400, and creatinine of around 2. He was given fluids, IM Rocephin, Augmentin, and sliding scale insulin. He was told to return to the office this morning, we did not make his appointment, a nurse practitioner called his son, who brought him in. He slept his appointment. He was more alert, but stated he just had not really felt well, he was eating fairly well. He denied any decrease in urination, chronic nocturia, BPH issues, or dysuria. His blood sugar was 300, his creatinine up to 2.5, he is now being admitted for fluid hydration, IV antibiotics. His culture did return E. coli sensitive to all antibiotics. His blood pressure was 90/60 as well. PAST MEDICAL HISTORY: Type 2 diabetes mellitus, remote DVT right lower extremity, essential hypertension, chronic pain syndrome from cervical and lumbar disc disease followed by Dr. Galarza. He had fluid replacement of his right knee times 2. He had UTI with acute renal insufficiency in November of 2018, resolved with hydration and antibiotics. History of gout. He has had ganglion cyst removed, had knee surgery times 2 on the right and appendectomy. SOCIAL HISTORY: He lives by himself. He does have a son living in town. He is a nonsmoker, nondrinker. FAMILY HISTORY: Unknown. HOME MEDICATIONS: Recently Augmentin 500 t.i.d., verapamil ER 240 mg 1 tablet b.i.d., paroxetine 10 mg daily, Lantus 30 units subQ b.i.d. a.c., NovoLog sliding scale, Losartan 50 mg 1 in the morning, allopurinol 100 mg a day, Farxiga 5 mg a day, Lasix 20 mg a day for edema, Zofran 4 mg p.r.n. nausea or vomiting, metformin 1000 mg tablet 1 tablet twice daily after meals, morphine ER 30 mg tablet b.i.d. REVIEW OF SYSTEMS: GENERAL: He has been fatigued with poor appetite for the last 72 hours. Denies fever. HEENT: No recent visual change, sinus congestion, or sore throat. RESPIRATORY: No SOB or cough. CARDIAC: No palpitations, claudication, or edema. He has had previous negative cardiac workup in the last year. GASTROINTESTINAL: Mild nausea, no vomiting, change in stools or blood per rectum. GENITOURINARY: Has nocturia once nightly. Denies any foul smelling urine, no hematuria or dysuria. ENDOCRINE: Denies polyuria, polydipsia, heat or cold intolerance. NEUROLOGIC: Denies history of stroke, TIA, or vascular headaches. Admits to some confusion throughout the last week. PSYCHIATRIC: Admits to mild depressed mood. HISTORY AND PHYSICAL [id number] STAR BAJWA PHYSICAL EXAMINATION: VITAL SIGNS: His blood pressure is 90/50, heart rate is 90 and regular, respirations were 18. BMI is 45.1, weight is 284 pounds, height 5 feet 6-1/2 inches, sats 98%. GENERAL: Awake and oriented, answering questions. HEENT: Eyes are clear and nonicteric. Oropharynx with dry mucous membranes. NECK: Supple. CHEST: Clear. HEART: Regular without MGR. PMI appropriate. ABDOMEN: Obese, soft, nontender. GENITOURINARY: Deferred. EXTREMITIES: A 1+ bipedal edema bilaterally. He has crepitus in both knees with flexion and extension with healed anterior knee scars times 2. NEUROLOGICAL: He is oriented to person and place, but not time. Somewhat weak on standing. No localizing signs. LABORATORY DATA: His BMP shows BUN 21 and creatinine of 2.65, it is normal under 1.5. Blood sugars 301, was 400. Potassium is 3.4, sodium is 133, CO2 is 22.6. Urine culture grew E. coli sensitive to all antibiotics. Uric acid is 9.8. Hemoglobin A1c is 12.5. UA showed 25-50 white cells, 25-50 red cells. ASSESSMENT: 1. Acute renal insufficiency. 2. Escherichia coli urinary tract infection, probable because of 1. 3. Adult-onset diabetes mellitus, poor control. 3. Chronic pain syndrome. 4. Hypertension and currently hypotensive, depression, osteoarthritis, gout. PLAN: The patient was brought by ambulance for direct admission to the hospital, we placed on a flue cleaner. Replace electrolytes, fluid bolus, IV antibiotics. Blood cultures. Sliding scale insulin. Further workup pending clinical course. TRANSINT:[id number] Voice Confirmation ID: [id number] DOCUMENT ID: [id number] BERNADETTE MORALES MD at 0705 CC: [id number] DICTATION DATE: 06/04/19 1638 PROGRAM MANUFACTURING LEADER: 06/04/19 1749 ADM IN [facility] [address] [id number]
--- NOTE | 2019-06-05 09:27 | NUR ---
AM MEDS GIVEN AT THIS TIME. POST VOID BLADDER SCAN DONE AT THIS TIME. PT HAD 0ML LEFT IN HIS BLADDER AFTER HE VOIDED. PT DENIES ANY NEEDS AT THIS TIME. CALL LIGHT IN REACH, NAD NOTED.
[2019-06-05 09:31] VITALS: BP 118/44
--- NOTE | 2019-06-05 11:35 | NUR ---
BLOOD SUGAR OF 253- 10UNITS OF INSULIN GIVEN PER S/S. 40MEQ OF K GIVEN FOR LOW K OF 3.1. PT RESTING COMFORTABLY IN BED, DENIES ANY NEEDS AT THIS TIME. CALL LIGHT IN REACH, NAD NOTED,W ILL CONTINUE TO MONITOR.
[2019-06-05 12:12] VITALS: Ht 175.3 cm; Wt 125.0 kg
[2019-06-05 12:23] VITALS: BP 114/46
[2019-06-05 15:04] VITALS: BP 114/50
--- NOTE | 2019-06-05 19:44 | NUR ---
PT LYING IN BED RESTING WITH EYES CLOSED. EASILY AWAKEN WITH VOICE STIMULATION. NO SIGNS OF DISTRESS NOTED. RESPIRATIONS UNLABORED. CALL LIGHT WITH IN REACH. PT ENCOUARGED TO CALL FOR HELP WHEN GETTING IN AND OUT OF BED. WILL CONTINUE TO MONITOR
[2019-06-05 20:24] VITALS: BP 122/57
[2019-06-06] VITALS: BP 130/56
--- NOTE | 2019-06-06 01:25 | NUR ---
ASSIST PT TO RESTROOM AND BACK TO BED. BED ALARM ON AND ACTIVE. CALL LIGHT WITH IN REACH. WILL CONTINUE TO MONITOR
--- NOTE | 2019-06-06 02:54 | NUR ---
I have reviewed this patient and I concur with the Shift Assessment completed by the Licensed Practical Nurse today this shift.
[2019-06-06 04:00] VITALS: BP 142/61
[2019-06-06 05:59] LABS: CALCIUM 7.6 mg/dL (8.5-10.1); CARBON DIOXIDE 25.7 mmol/L (21.0-32.0); CHLORIDE - SERUM 101 mmol/L (98-107); GLUCOSE 127 mg/dL (74-106); SODIUM 135 mmol/L (136-145)
[2019-06-06 06:17] LABS: CALC OSMOLALITY 274 mosm/kg (275-300); CREATININE - SERUM 0.9 mg/dL (0.6-1.3); POTASSIUM - SERUM 4.2 mmol/L (3.5-5.1); UREA NITROGEN 20 mg/dL (7-18); eGFR NON AFRICAN AMERICAN 87 mL/min (90-120)
[2019-06-06 06:31] LABS: HEMATOCRIT 39.4 % (42.0-54.0); HEMOGLOBIN 12.8 g/dL (13.5-17.5); MCH 28.2 pg (26.0-34.0); MCHC 32.5 g/dL (31.0-37.0); MCV 86.8 fL (80.0-100.0); MEAN PLATELET VOLUME 11.1 fL (7.4-10.4); RBC 4.54 10x6/uL (4.20-6.10); RDW 14.3 % (11.5-14.5)
[2019-06-06 06:33] LABS: PLATELET COUNT 151 10x3/uL (130-400); WBC 10.3 10x3/uL (4.8-10.8)
[2019-06-06 06:51] LABS: BASOPHILS 2 % (0-2); LYMPHOCYTES 21 % (15-50); MONOCYTES 1 % (2-11); NEUTROPHILS 76 % (40-80); PLATELET ESTIMATE NORMAL
--- NOTE | 2019-06-06 08:55 | NUR ---
PT TO MRI, VIA WHEELCHAIR.
--- NOTE | 2019-06-06 10:19 | NUR ---
PT BACK FROM MRI. AM MEDS GIVEN AT THIS TIME. ALSO PROVIDED PT WITH CUP OF ICE WATER. PT DENIES ANY OTHER NEEDS AT THIS TIME. CALL LIGHT IN REACH, NAD NOTED, WILL CONTINUE TO MONITOR.
[2019-06-06] MEDS ORDERED: AMOX TR-K CLV 21 TAB PO (16:37)
--- NOTE | 2019-06-06 17:06 | NUR ---
PROVIDED VERBAL AND WRITTEN DISCHARGE TEACHING TO PT, WHO VERBALIZED UNDERSTANDIGN REGARDING TEACHING. D/C RT FA IV WITH CATHETER TIP INTACT. PT WAITING ON RIDE, WILL NOTIFY NURSE WHEN READY FOR WHEELCHAIR.
[2019-06-06 17:12] VITALS: BP 174/72
--- NOTE | 2019-06-06 17:20 | NUR ---
PT LEFT UNIT VIA WHEELCHAIR, WITH ALL BELONGINGS, NAD NOTED.
--- NOTE | 2019-06-06 18:15 | MORECARE ---
CASE MANAGEMENT DISCHARGE SUMMARY PATIENT: STAR BAJWA UNIT: [id number] ADM DATE: 06/04/19 AGE: 78 : 42 SEX: M ROOM/BED: D.2106 AUTHOR: NIKO DIANA PHYSICIAN: REFERRING PHYSICIAN: BERNADETTE MORALES MD DATE OF SERVICE: 06/06/19 Discharge Plan Patient Name: STAR BAJWA [facility] [facility] 1940 Planned Disposition: Home Anticipated Discharge Date: Discharge Date: 06/06/2019 Expected LOS: Initial Reviewer: [email or web address] Initial Review Date: 06/04/2019 Generated: 06/06/19 7:15 pm Patient Name: STAR BAJWA Page [id number] at 1815 All edits/amendments must be made on the electronic document DICTATION DATE: 06/06/191814 ACCOUNTS RECEIVABLE COLLECTOR: CL 06/06/191814 RPT#: [id number] DC DATE:06/06/19 STATUS: DIS IN [facility] [address] [place] [address] END OF REPORT
--- NOTE | 2019-06-06 18:23 | MORECARE ---
CASE MANAGEMENT DISCHARGE SUMMARY PATIENT: STAR BAJWA UNIT: [id number] ADM DATE: 06/04/19 AGE: 78 : 42 SEX: M ROOM/BED: D.2106 AUTHOR: NIKO DIANA PHYSICIAN: REFERRING PHYSICIAN: BERNADETTE MORALES MD DATE OF SERVICE: 06/06/19 Discharge Plan Patient Name: STAR BAJWA Facility: [facility]:[place] : 1940 Planned Disposition: Home Anticipated Discharge Date: Discharge Date: 06/06/2019 Expected LOS: Initial Reviewer: [email or web address] Initial Review Date: 06/04/2019 Generated: 06/06/19 7:22 pm Comments DCP- Discharge Planning Updated by [email or web address]: Jaylyn Davenport on 06/06/19 5:[address] Patient Name: STAR BAJWA Admission Status: Elective Accout number: [id number] Admission Date: 06-04-2019 : 1940 Admission Diagnosis:ALTERED MENTAL STATUS, UNSPECIFIED Attending: BERNADETTE MORALES Current LOS: 2 Anticipated DC Date: Planned Disposition: Home Primary Insurance: MEDICARE A & B Discharge Planning Comments: CM spoke with patient to complete initial dc planning assessment. CM educated patient on the CM role and verbal consent given by patient to complete assessment. Patient lives alone and plans to return there upon discharge. CM discussed availability of home health, rehab services, and medical equipment. Patient will have son drive him home upon discharge. Patient denies any known discharge needs at this time. CM will continue to follow and will assist as needed with dc plans/needs. Diesel Powerplant Supervisor: Jaylyn Davenport DCPIA - Discharge Planning Initial Assessment Updated by [email or web address]: Jaylyn Davenport on 06/06/19 6:15 pm * Is the patient Alert and Oriented? Yes * How many steps to enter\exit or inside your home? * PCP * Pharmacy [facility] * Preadmission Environment Home Alone * ADLs Independent * Equipment Walker * Other Equipment CANE * List name and contact numbers for known caregivers / representatives who currently or will assist patient after discharge: RODDY BAJWA - SON - [phone] * Verbal permission to speak to the caregivers and representatives has been obtained from the patient. N/A * Community resources currently utilized None * Additional services required to return to the preadmission environment? No * Can the patient safely return to the preadmission environment? Yes * Has this patient been hospitalized within the prior 30 days at any hospital? No Last DP export: 06/06/19 5:15 p Patient Name: STAR BAJWA Page [phone] at 1823 All edits/amendments must be made on the electronic document DICTATION DATE: 06/06/191821 IMMIGRATION LAW SPECIALIST: CL 06/06/191821 RPT#: [id number] DC DATE:06/06/19 STATUS: DIS IN [facility] [address] [place] [address] END OF REPORT
--- NOTE | 2019-06-06 18:33 | MORECARE ---
CASE MANAGEMENT DISCHARGE SUMMARY PATIENT: STAR BAJWA UNIT: [id number] ADM DATE: 06/04/19 AGE: 78 : 42 SEX: M ROOM/BED: D.2106 AUTHOR: NIKO DIANA PHYSICIAN: REFERRING PHYSICIAN: BERNADETTE MORALES MD DATE OF SERVICE: 06/06/19 Discharge Plan Patient Name: STAR BAJWA [facility]:[place] : 1940 Planned Disposition: Home Anticipated Discharge Date: Discharge Date: 06/06/2019 Expected LOS: Initial Reviewer: [email or web address] Initial Review Date: 06/04/2019 Generated: 06/06/19 7:33 pm Comments DCP- Discharge Planning Updated by [email or web address]: Jaylyn Davenport on 06/06/19 5:[address] Patient Name: STAR BAJWA Admission Status: Elective Accout number: [id number] Admission Date: 06-04-2019 : 1940 Admission Diagnosis:ALTERED MENTAL STATUS, UNSPECIFIED Attending: BERNADETTE MORALES Current LOS: 2 Anticipated DC Date: Planned Disposition: Home Primary Insurance: MEDICARE A & B Discharge Planning Comments: CM spoke with patient to complete initial dc planning assessment. CM educated patient on the CM role and verbal consent given by patient to complete assessment. Patient lives alone and plans to return there upon discharge. CM discussed availability of home health, rehab services, and medical equipment. Patient will have son drive him home upon discharge. Patient denies any known discharge needs at this time. CM will continue to follow and will assist as needed with dc plans/needs. Information Delivery Analyst: Jaylyn Davenport DCPIA - Discharge Planning Initial Assessment Updated by [email or web address]: Jaylyn Davenport on 06/06/19 6:15 pm * Is the patient Alert and Oriented? Yes * How many steps to enter\exit or inside your home? * PCP * Pharmacy [facility] * Preadmission Environment Home Alone * ADLs Independent * Equipment Walker * Other Equipment CANE * List name and contact numbers for known caregivers / representatives who currently or will assist patient after discharge: RODDY BAJWA - SON - [phone] * Verbal permission to speak to the caregivers and representatives has been obtained from the patient. N/A * Community resources currently utilized None * Additional services required to return to the preadmission environment? No * Can the patient safely return to the preadmission environment? Yes * Has this patient been hospitalized within the prior 30 days at any hospital? No Last DP export: 06/06/19 5:23 p Patient Name: STAR BAJWA Page [id number] at 1833 All edits/amendments must be made on the electronic document DICTATION DATE: 06/06/191832 DESKTOP SUPPORT ASSOCIATE: CL 06/06/191832 RPT#: [id number] DC DATE:06/06/19 STATUS: DIS IN [facility] [address] [place] [address] END OF REPORT
== END 2019-06-06 17:21 | disposition home or self-care (01) | DRG 682 ==
LOC: D.M2 16:25
PROVIDERS: ADMIT Family Medicine; ATTEND Family Medicine
DX: N17.9 Acute kidney failure, unspecified (principal); G93.41 Metabolic encephalopathy; N39.0 Urinary tract infection, site not specified; B96.20 Unspecified Escherichia coli [E. coli] as the cause of diseases classified elsewhere; E11.9 Type 2 diabetes mellitus without complications; I10 Essential (primary) hypertension; G89.4 Chronic pain syndrome; F32.9 Major depressive disorder, single episode, unspecified; E86.0 Dehydration; I95.9 Hypotension, unspecified; H05.9 Unspecified disorder of orbit

== ENCOUNTER 2020-04-16 12:32 | Observation (INO) | payer MEDICARE, BC ==
[~2020-04-16] VITALS: Ht 175.3 cm; Wt 129.5 kg
--- NOTE | ~2020-04-16 | OP ---
PATIENT NAME: STAR BAJWA MEDICAL RECORD: [id number] :44 LOCATION:D.M2 D.2109 ADMISSION DATE:04/16/20 SURGEON: ANGELA CURTIS MD DATE OF OPERATION: 04/17/2020 PROCEDURE: Left heart catheterization, selective coronary angiography, right radial approach. CATHETERS: Radial sheath, [place] catheter as well as an AR1 and AR2, finally a hockey stick catheter. The procedure was well tolerated. The patient was returned to the [place]. Sheath removed. TR band was placed. FINDINGS: Left ventriculography in 30 degree BARRIOS view; normal wall motion and normal LV systolic function. Pullback shows a gradient of only 15 mmHg, placing this in very mild range. CORONARY ANATOMY: LEFT MAIN: Left main is free of disease. LAD: Free of disease in the diagonal system. CIRCUMFLEX: Free of disease in the marginal system. RIGHT CORONARY ARTERY: This is a huge dominant right, free of disease. IMPRESSION: Very early aortic stenosis, normal left ventricular function. No significant coronary disease. TRANSINT:[id number] Voice Confirmation ID: [id number] DOCUMENT ID: [id number] ANGELA CURTIS MD CC: [id number] DICTATION DATE: 04/17/20 1544 COTTONSEED MEAT PRESSER: 04/17/20 1644 DIS IN 04/17/20 [facility] [address] [place] [address]
--- NOTE | ~2020-04-16 | HEMODYNAMI ---
PATIENT:STAR BAJWA MEDICAL RECORD: [id number] : 44 LOCATION:[facility] [place] D.[id number] ADMISSION DATE: 04/16/20 Generatedon:115:32 Patient name: STAR BAJWA Patient #: [id number] SSN: [id number] : 1940 Date of study: 04/17/2020 Page: Of Hemodynamic Procedure Report Patient Data Patient Demographics Procedure consent was obtained First Name: STAR Gender: Male Last Name: GARETT : 1940 Middle Initial: W Age: 79 year(s) Patient #: [id number] Race: Unknown SSN: [id number] Additional ID: [id number] Contact details Address: [address] [place] [address] p19 State: [place] City: [place] Zip code: [address] Admission Admission Data Admission Date: 04/16/2020 Admission Time: 14:26 Arrival Date: 04/17/2020 Arrival Time: 0:00 Admit Source: Other [facility] #: [id number] Room #: D.2110 Lab Results Lab Result Date: 04/17/2020 Lab Result Time: 0:00 Biochemistry Name Units Result Min Max BUN mg/dl 15 --(--*-)-- 7 18 Creatinine mg/dl 1.2 --(---*)-- 0.6 1.3 eGFR ml/min 61.64244 *-(----)-- 90 120 NONAFRICAN CBC Name Units Result Min Max Hemoglobin g/dl 11.8 *-(----)-- 13.5 17.5 Procedure Procedure Types Cath Procedure Diagnostic Procedure [facility] w/Coronaries Sedation Charges Moderate Sedation 25-39 minutes Procedure Description Procedure Date Procedure Date: 04/17/2020 Procedure Start Time: 15:07 Procedure End Time: 15:30 Procedure Staff Name Function Osvaldo Viera MD Performing Physician Montana Maxwell RN Nurse Sybil Díaz RT Monitor Olivia Ro RT Scrub Procedure Data Cath Procedure Fluoroscopy Diagnostic fluoroscopy Total fluoroscopy Time: 8.8 time: 8.8 min min Diagnostic fluoroscopy Total fluoroscopy dose: dose: 1881 mGy 1881 mGy Contrast Material Contrast Material Type Amount (ml) Isovue 300 169 Entry Location Entry Primary Successful Side Size Upsize Upsize Entry Closure Stokes ccessful Closure Location (Fr) 1 (Fr) 2 (Fr) Remarks Device Remarks Radial Right 6 Fr Mechanical artery Short Compression Estimated blood loss: 10 ml Diagnostic catheters Device Type Used For End Catheter Placement DIAGNOSTIC Barwick 110cm 5 Procedure Fr catheter ([id number]) DIAGNOSTIC AR MOD 5Fr Procedure Catheter ([id number]) DIAGNOSTIC AR2 MOD 5 Fr Procedure catheter ([id number]) Procedure Complications No complications Procedure Medications Medication Administration Route Dosage 0.9% NaCl I.V. 100 ml/hr Oxygen etCO2 Nasal cannula 2 l/min Heparin Flush Bag added to field 2 bags (1000units/500ml NS) Lidocaine 2% added to field 20 Radial Cocktail added to field 1 syringe (Verapamil 2mg/Nitro 400mcg/Heparin 1500units) Versed I.V. 2 mg Fentanyl I.V. 100 mcg Versed I.V. 2 mg Lopressor I.V. 5 mg Versed I.V. 2 mg Fentanyl I.V. 100 mcg Hemodynamics Rest HGB: 11.8 (g/dl) Heart Rate: 65 (bpm) Pressure Samples Time Site Value (mmHg) Purpose Heart Use Rate(bpm) 15:18 LV 220/7,21 Snapshot 70 15:19 AO 209/80(131) Pullback 70 15:19 LV 213/13,25 Pullback 70 Gradients Valve Time Site 1 Site 2 Mean SEP/DFP Peak To Heart Use (mmHg) (sec/min) Peak Rate (mmHg) (bpm) Aortic 15:19 LV AO 6 16 4 70 213/13,25 209/80(131) Calculations Valve P-P Mean Valve Index Valve Source Name Gradient Area Flow (cm2) Aortic 4 6 4 6 Snapshots Pre Cath Intra NCS Post Cath Vital Signs Time Heart Resp SPO2 etCO2 NIBP (mmHg) Rhythm Pain Sedation Rate (ipm) (%) (mmHg) Status Level (bpm) 14:56:38 66 42 94 15 181/84(153) NSR 0 (11) 10(A) , No pain 15:01:07 67 15 94 21.8 172/94(136) NSR 0 (11) 10(A) , No pain 15:06:39 67 26 93 21.8 170/84(156) NSR 0 (11) 10(A) , No pain 15:11:01 72 24 92 14.2 153/83(114) NSR 0 (11) 10(A) , No pain 15:16:31 68 23 93 12.7 195/88(161) NSR 0 (11) 10(A) , No pain 15:21:05 70 22 95 15.7 200/93(162) NSR 0 (11) 10(A) , No pain 15:25:43 66 24 95 23.3 206/96(162) NSR 0 (11) 10(A) , No pain 15:30:22 91 15.7 197/89(154) NSR 0 (11) 10(A) , No pain Medications Time Medication Route Dose Verified Delivered Reason Notes Effectiveness by by 14:55:15 0.9% NaCl I.V. 100 Montana Montana Per ml/hr Alissa Maxwell physician RN RN 14:55:25 Oxygen etCO2 2 l/min Montana Montana for low 02 Nasal Lorigan Lorigan sats cannula RN RN 14:55:35 Heparin Flush added 2 bags Montana Montana used for Bag to Lorigan Lortrevor procedure (1000units/500ml the [facility] RN RN NS) 14:55:46 Lidocaine 2% added 20ml Montana Montana for local to vial Lorigan Lorigan anesthetic RN RN 14:57:05 Radial Cocktail added 1 Montana Montana used for (Verapamil to syringe Lorigan Lorigan procedure 2mg/Nitro the [facility] RN RN 400mcg/Heparin 1500units) 15:01:49 Versed I.V. 2 mg Montana Montana for sedation Alissa Maxwell RN RN 15:01:57 Fentanyl I.V. 100 mcg Montana [place] for sedation Alissa Maxwell RN RN 15:04:31 Versed I.V. 2 mg Montana [place] for sedation Alissa Maxwell RN RN 15:25:49 Lopressor I.V. 5 mg Montana Montana for Lorigan Lorigan dinah RN RN 15:25:56 Versed I.V. 2 mg Montana [place] for sedation Alissa Maxwell RN RN 15:28:41 Fentanyl I.V. 100 mcg Montana Boyle shoulder Alissa Maxwell pain RN health insurance sales agent Log Time Note 14:19:33 Informed consent obtained and on chart 14:25:01 Procedure Status Urgent Heart Cath (IP). 14:25:02 Time tracking: Regular hours (M-F 7:00 - 5:00) 14:25:05 Plan of Care:Hemodynamics will remain stable., Cardiac rhythm will remain stable., Comfort level will be maintained., Respiratory function will remain adequate., Patient/ family verbilizes understanding of procedure., Procedure tolerated without complication., Recovers from procedure without complications.. 14:31:41 Arrival Date: 04/17/2020 12:00:00 AM 14:31:42 Admit Source: Other 14:47:59 Patient received from Med II to CCL 2 Alert and oriented. Tansferred to table in Supine position. 14:48:01 Warm blankets applied, and kandy hugger turned on for patient comfort. 14:48:01 Correct patient and procedure confirmed by team. 14:48:01 ECG and BP/O2 sat monitors applied to patient. 14:48:03 Full Disclosure recording started 14:48:03 Pre-procedure instructions explained to patient. 14:48:04 Pre-op teaching completed and patient verbalized understanding. 14:48:05 Family unavailable. 14:48:06 Patient NPO since Midnight. 14:48:09 Is the patient allergic to Iodine/contrast media? No. 14:48:10 Is patient on blood thinner?No 14:48:11 Patient diabetic? Yes. 14:48:12 If diabetic: On Metformin? Yes 14:48:14 If on Metformin: Last Dose? 04/15/2020 14:48:17 Previous problem with sedation/anesthesia? No ? 14:48:19 Snore? Yes 14:48:20 Sleep apnea? No 14:48:22 Deviated septum? No 14:48:22 Opens mouth fully? Yes 14:48:23 Sticks out tongue? Yes 14:48:25 Airway obstruction? No ? 14:48:28 Dentures? No ? 14:55:15 0.9% NaCl 100 ml/hr I.V. was administered by Montana Maxwell RN; Per physician; Verbal order read back and verified. 14:55:18 Vital chart was started 14:55:19 Baseline sample Acquired. 14:55:23 Rhythm: sinus rhythm 14:55:25 Oxygen 2 l/min etCO2 Nasal cannula was administered by Montana Maxwell RN; for low 02 sats; Verbal order read back and verified. 14:55:35 Heparin Flush Bag (1000units/500ml NS) 2 bags added to field was administered by Montana Maxwell RN; used for procedure; Verbal order read back and verified. 14:55:46 Lidocaine 2% 20ml vial added to field was administered by Montana Maxwell RN; for local anesthetic; Verbal order read back and verified. 14:55:46 H&P Date Dictated: 04/16/2020 Within 30 days and on chart., H&P Addendum completed by physician on day of procedure. (MUST COMPLETE FOR ALL OUTPATIENTS). 14:56:06 Patient pain scale 6/10 ?. 14:56:12 IV patent on arrival in left forearm with 0.9% NaCl at [facility]. 14:56:50 Lab Result : BUN 15 mg/dl 14:56:50 Lab Result : eGFR NONAFRICAN 61.09191 ml/min 14:56:50 Lab Result : Creatinine 1.2 mg/dl 14:56:50 Lab Result : Hemoglobin 11.8 g/dl 14:57:05 Radial Cocktail (Verapamil 2mg/Nitro 400mcg/Heparin 1500units) 1 syringe added to field was administered by Montana Maxwell RN; used for procedure; Verbal order read back and verified. 14:57:30 Lab results completed and on chart. 15:00:21 Stress Test: no; N/A . 15:00:26 Risk of Mortality: .5 15:00:29 Risk of blood transfusion: 2.1 15:00:33 Risk of SOPHIA: 1.6 15:00:40 Right Radial & Right Groin area was prepped with chlora-prep and draped in sterile fashion 15:00:43 Alarms reviewed by R. N. 15:00:44 Sharps counted by scrub and verified by R.N. 15:00:46 Physician arrived 15:00:47 --------ALL STOP TIME OUT------ 15:00:48 Final Timeout: patient, procedure, and site verified with staff and physician. All members of the team are in agreement. 15:00:55 Right Radial & Right Groin site verified by team. 15:01:00 Fire Safety Assessment: A--An alcohol-based skin anteseptic being used preoperatively., C--Open oxygen or nitrous oxide is being used., D--An ESU, laser, or fiber-optic light is being used. 15:01:06 Physical assessment completed. ASA score P 3 - A patient with severe systemic disease as per Osvaldo Viera MD. 15:01:18 2) 60-89 Mildly reduced kidney function, and other findings (as for stage 1) point to kidney disease. 15:01:24 Maximum allowable contrast dose (3.7 X eGFR X 0.75)172 ml. 15:01:28 Sedation plan: IV Moderate Sedation Medication:Versed, Fentanyl 15:01:34 Use device set Radial Dx or PCI 15:01:36 ACIST Syringe (33931) opened to sterile field. 15:01:37 Medline Cath Pack ([id number]) opened to sterile field. 15:01:39 Bag Decanter (2002S) opened to sterile field. 15:01:40 ACIST Hand Control (90322) opened to sterile field. 15:01:40 ACIST Manifold (43448) opened to sterile field. 15:01:41 Tegaderm 4 x 4 (1626W) opened to sterile field. 15:01:43 MBrace Wrist Support (358001912) opened to sterile field. 15:01:45 EMERALD Guide Wire (065-797) opened to sterile field. 15:01:49 Versed 2 mg I.V. was administered by Montana Maxwell RN; for sedation; Verbal order read back and verified. 15:01:50 SHEATH 6FR RAIN (6214609) opened to sterile field. 15:01:57 Fentanyl 100 mcg I.V. was administered by Montana Maxwell RN; for sedation; Verbal order read back and verified. 15:04:31 Versed 2 mg I.V. was administered by Montana Maxwell RN; for sedation; Verbal order read back and verified. 15:06:47 Procedure started. 15:07:14 Local anesthetic to right radial artery with Lidocaine 2% by Osvaldo Viera MD.INITIAL ACCESS ONLY 15:08:39 A 6 Fr Short sheath was inserted into the Right Radial artery 15:09:11 A DIAGNOSTIC Barwick 110cm 5 Fr catheter (494062) was advanced over the wire and used for Procedure. 15:11:13 LCA angiography performed. 15:12:20 Catheter removed. 15:13:33 A DIAGNOSTIC AR MOD 5Fr Catheter (091794J) was advanced over the wire and used for Procedure. 15:13:39 RCA angiography performed. 15:17:51 Catheter removed. 15:17:57 A DIAGNOSTIC AR2 MOD 5 Fr catheter (418709V) was advanced over the wire and used for Procedure. 15:18:37 LV gram done using BARRIOS 15:19:16 EF : 55 % 15:21:39 Catheter removed. 15:22:54 GUIDE 6FR HS I catheter (LA6HSI) opened to sterile field. 15:25:31 RCA angiography performed. 15:25:42 Catheter removed. 15:25:49 Lopressor 5 mg I.V. was administered by Montana Maxwell RN; for hypertension; Verbal order read back and verified. 15:25:56 Versed 2 mg I.V. was administered by Montana Maxwell RN; for sedation; Verbal order read back and verified. 15:26:10 Sheath removed intact; hemostasis achieved with Mechanical Compression to the Right Radial artery. 15:26:22 Procedure ended.(Physican Out) 15:26:56 ZEPHYR REGULAR TR BAND (615612) opened to sterile field. 15:27:51 Fluoroscopy time 08.80 minutes. 15:27:58 Fluoroscopy dose: 1881 mGy 15:27:58 Flurop Dose total: 1881 15:28:08 Dose Area Product 669342 mGy/cm. 15:28:14 Contrast amount:Isovue 300 169ml. 15:28:16 Maximum allowable dose exceeded? No. 15:28:18 Sharps counted by scrub and verified by R.N. 15:28:19 Insertion/operative site no bleeding no hematoma. 15:28:26 Post Procedure Pulses reassessed and unchanged 15:28:29 Post procedure rhythm: unchanged. 15:28:32 Estimated blood loss: 10 ml 15:28:34 Post procedure instruction explained to patient.Patient verbalizes understanding. 15:28:41 Fentanyl 100 mcg I.V. was administered by Montana Maxwell RN; shoulder pain; Verbal order read back and verified. 15:28:48 Procedure type changed to Cath procedure, Diagnostic procedure, LHC, LHC w/Coronaries, Sedation Charges, Moderate Sedation 25-39 minutes 15:28:51 Procedure and supply charges have been captured, reviewed, submitted and are correct. 15:30:02 Procedure Complication : No complications 15:30:05 Vital chart was stopped 15:30:10 [facility] Findings: mild to moderate CAD (<70%) 15:30:18 Patient transfered to Pre/Post Procedure Room with Bed. 15:30:20 Procedure ended. 15:30:20 Full Disclosure recording stopped 15:30:29 End room use (Document Last) 15:30:54 End room use (Document Last) 15:31:47 End room use (Document Last) Device Usage Item Name Manufacture Quantity Catalog Hospital Part Current Minima l Lot# / Number Charge Number Stock Stock Serial# Code ACIST Acist 1 32816 346864 870516 061909 20 Syringe Medical (55768) Systems Inc Medline Medline 1 [id number] 366954 30524 709537 5 Cath Pack ([id number]) Bag Microtek 1 2001S 542480 23034 245222 5 Decanter Medical Inc. () ACIST Hand Acist 1 48873 574766 230824 073008 5 Control Medical (38686) Systems Inc ACIST Acist 1 11082 156738 573367 969077 5 Manifold Medical (59068) Systems Inc Tegaderm 4 3M 1 1626W 620856 916893 504492 5 x 4 (1626W) MBrace Advanced 1 140-0250-00 479708 68155 915972 5 Wrist Vascular Support Dynamics (342333866) EMERALD Cardinal 1 502-455 759649 579830 718789 5 Guide Wire Health (502455) SHEATH 6FR Cardinal 1 4597957 868594 6949075 536581 5 Wunderlich Securities (8787341) DIAGNOSTIC Terumo 1 40-5013 180809 132637 464286 5 Barwick 110cm 5 Fr catheter (856708) DIAGNOSTIC Cardinal 1 488944S 052983 106143 519192 15 AR MOD 5Fr Health Catheter (628906V) DIAGNOSTIC Cardinal 1 307674G 817040 221073 236054 20 AR2 MOD 5 Health Fr catheter (466313C) GUIDE 6FR Medtronic 1 LA6HSI 406794 27020 891427 1 HS I catheter (LA6HSI) ZEPHYR Cardinal 1 751212 103460 0993218 536843 5 REGULAR TR Health BAND (624914) Signature Audit [place] Stage Time Signature Unsigned Intra-Procedure 04/17/2020 Sybil Díaz 3:30:54 PM RT(R) Intra-Procedure 04/17/2020 Montana 3:31:47 PM Alissa RN Intra-Procedure 04/17/2020 Osvaldo Ruby 3:32:09 PM Jack ESTEVEZ Signatures Performing Physician : Signature : Osvaldo Viera MD Date : Time : Nurse : Montana Maxwell Signature : RN Date : Time : Monitor : Sybil Díaz Signature : RT Date : Time : [place] [address] [place] [address]
[~2020-04-16 12:32] MED LIST changes: +AMOX TR-K CLV 21 TAB PO; +CIPRO500 MG PO; +FLOMAX0.4 MG PO; +GLUCOPHAGE1000 MG PO; +LANTUS INS100 UNITS/ SC; +LANTUS SC; +LASIX20 MG PO; +NARCAN; +PAROXETINE HCL10 MG PO; +ZITHROMAX250 MG PO; +ZOFRAN4 MG PO; +ZYLOPRIM100 MG PO
[2020-04-16 13:26] LABS: BASOPHILS 0.3 % (0-2); EOSINOPHILS 0.8 % (0-7); HEMATOCRIT 37.5 % (42.0-54.0); HEMOGLOBIN 12.8 g/dL (13.5-17.5); IMMATURE GRANULOCYTES 0.1 % (0-5); LYMPHOCYTE ABS# 2.02 10x3/uL (1.32-3.57); LYMPHOCYTES 25.8 % (15-50); MCH 28.7 pg (26.0-34.0); MCHC 34.1 g/dL (31.0-37.0); MCV 84.1 fL (80.0-100.0); MEAN PLATELET VOLUME 10.6 fL (7.4-10.4); MONOCYTES 13.7 % (2-11); NEUTROPHIL ABS# 4.64 10x3/uL (1.78-5.38); NEUTROPHILS 59.3 % (40-80); PLATELET COUNT 193 10x3/uL (130-400); RBC 4.46 10x6/uL (4.20-6.10); RDW 13.1 % (11.5-14.5); WBC 7.8 10x3/uL (4.8-10.8)
[2020-04-16 13:35] LABS: INR 1.17 (0.85-1.17); PROTIME 13.8 SECONDS (11.6-15.0)
[2020-04-16 13:36] LABS: APTT 35.2 SECONDS (22.8-39.4)
[2020-04-16 13:53] LABS: ALBUMIN 3.6 g/dL (3.4-5.0); ALKALINE PHOSPHATASE 105 U/L (30-120); ALT (SGPT) 26 U/L (10-68); BILIRUBIN - TOTAL 0.95 mg/dL (0.2-1.3); CALC OSMOLALITY 283 mosm/kg (275-300); CALCIUM 9.3 mg/dL (8.5-10.1); CARBON DIOXIDE 25.6 mmol/L (21.0-32.0); CHLORIDE - SERUM 102 mmol/L (98-107); CKMB 1.2 U/L (0.0-3.6); CREATINE KINASE 106 UL (21-232); CREATININE - SERUM 1.3 mg/dL (0.6-1.3); SODIUM 138 mmol/L (136-145); TROPONIN-I 0.024 ng/mL (0.000-0.060); UREA NITROGEN 15 mg/dL (7-18); eGFR NON AFRICAN AMERICAN 57 mL/min (90-120)
[2020-04-16 13:54] LABS: GLUCOSE 221 mg/dL (74-106)
[2020-04-16 16:58] LABS: CHOL - HDL RATIO 3.7 ratio (2.3-4.9)
[2020-04-16 17:11] VITALS: BP 172/84
--- NOTE | 2020-04-16 18:28 | NUR ---
ARRIVED FROM ER VIA W/C IN STABLE CONDITION ACCOMPANIED BY HOSPITAL STAFF, ORIENTED TO UNIT/ROOM/BED CONTROLS, LYING IN BED, AWAKE/ALERT/ORIENTED, T/R WITH ASSIST AD LUZ, CONT OF B/B WITH BRPs WITH ASSIST AD LUZ, DENIES PAIN/OTHER DISCOMFORT AT THIS TIME, CALL LIGHT/PHONE WITHIN REACH, NO S/S OF ACUTE DISTRESS OBSERVED.
--- NOTE | 2020-04-16 19:30 | NUR ---
PT UP IN ROOM, AAO X 3, RESP EVEN AND UNLABORED, NO DISTRESS NOTED, CL IN REACH, SR UP X 2.
[2020-04-16 21:34] VITALS: BP 165/60
[2020-04-17 00:40] VITALS: BP 139/56
[2020-04-17 00:52] LABS: CREATINE KINASE 76 UL (21-232); TROPONIN-I 0.022 ng/mL (0.000-0.060)
--- NOTE | 2020-04-17 04:06 | NUR ---
I have reviewed this patient and I concur with the Shift Assessment completed by the Licensed Practical Nurse today this shift.
[2020-04-17 06:06] VITALS: BP 132/58
[2020-04-17 06:07] LABS: BASOPHILS 0.3 % (0-2); EOSINOPHILS 1.5 % (0-7); HEMATOCRIT 35.4 % (42.0-54.0); HEMOGLOBIN 11.8 g/dL (13.5-17.5); IMMATURE GRANULOCYTES 0.2 % (0-5); LYMPHOCYTE ABS# 1.94 10x3/uL (1.32-3.57); LYMPHOCYTES 29.9 % (15-50); MCH 28.4 pg (26.0-34.0); MCHC 33.3 g/dL (31.0-37.0); MCV 85.1 fL (80.0-100.0); MONOCYTES 12.9 % (2-11); NEUTROPHIL ABS# 3.58 10x3/uL (1.78-5.38); NEUTROPHILS 55.2 % (40-80); PLATELET COUNT 173 10x3/uL (130-400); RBC 4.16 10x6/uL (4.20-6.10); RDW 13.3 % (11.5-14.5); WBC 6.5 10x3/uL (4.8-10.8)
[2020-04-17 06:57] LABS: BILIRUBIN NEGATIVE (NEGATIVE); KETONE NEGATIVE (NEGATIVE); NITRITE NEGATIVE (NEGATIVE); UROBILINOGEN NORMAL mg/dL (< 2)
[2020-04-17 06:58] LABS: BACTERIA FEW HPF (NONE SEEN); SQUAMOUS EPITHELIAL RARE HPF (0-4); WHITE CELLS - URINE OCC HPF (0-1)
[2020-04-17 07:03] LABS: ALBUMIN 3.1 g/dL (3.4-5.0); ALKALINE PHOSPHATASE 89 U/L (30-120); ALT (SGPT) 21 U/L (10-68); BILIRUBIN - TOTAL 0.78 mg/dL (0.2-1.3); CALC OSMOLALITY 281 mosm/kg (275-300); CALCIUM 8.3 mg/dL (8.5-10.1); CARBON DIOXIDE 27.9 mmol/L (21.0-32.0); CHLORIDE - SERUM 105 mmol/L (98-107); CREATINE KINASE 70 UL (21-232); CREATININE - SERUM 1.2 mg/dL (0.6-1.3); POTASSIUM - SERUM 3.4 mmol/L (3.5-5.1); PROTEIN - SERUM 7.2 g/dL (6.4-8.2); SODIUM 140 mmol/L (136-145); TROPONIN-I 0.018 ng/mL (0.000-0.060); UREA NITROGEN 15 mg/dL (7-18); eGFR NON AFRICAN AMERICAN 62 mL/min (90-120)
[2020-04-17 07:05] LABS: GLUCOSE 133 mg/dL (74-106)
--- NOTE | 2020-04-17 07:10 | NUR ---
SITTING UP IN CHAIR AT BEDSIDE, ALERT/ORIENTED, T/R SELF AD LUZ, CONT OF B/B WITH BRPs PER SELF AD LUZ, DENIES PAIN/OTHER DISCOMFORT AT THIS TIME, CALL LIGHT/PHONE WITHIN REACH, NO S/S OF ACUTE DISTRESS OBSERVED.
--- NOTE | 2020-04-17 07:20 | NUR ---
EDUCATED ON USE OF SCDs, CONT TO REFUSE.
[2020-04-17 08:02] VITALS: BP 140/47
--- NOTE | 2020-04-17 08:45 | NUR ---
RECEIVED CALL FROM [employer] STATING PT DROPPING DOWN TO 30s AND 40s, CHECKED ON PT WHO STATES "I JUST FEEL FUNNY", AM VITALS SHOW BP 140/57 AND HR 53, RECHECKED AT THIS TIME SHOWS 153/65 BP AND 55 HR, SPOKE WITH LAURIE DOYLE WHO STATES NNO AT THIS TIME.
--- NOTE | 2020-04-17 10:57 | NUR ---
PER YADIRA MARIE 0800-SPOKE WITH BALA REGARDING HR 38. 0902-BALA SPOKE WITH CRDIOLOGY. PT B/P GOOD, HEART CATH THIS AFTERNOON.
[2020-04-17 11:10] VITALS: BP 172/59
[2020-04-17 12:41] LABS: CKMB 0.4 U/L (0.0-3.6); CREATINE KINASE 71 UL (21-232); TROPONIN-I 0.023 ng/mL (0.000-0.060)
--- NOTE | 2020-04-17 13:20 | NUR ---
PT REQUEST NURSE, GO INTO ROOM AND PT STATES "IT'S ALMOST 2:00", NURSE REASSURES HIM THAT THE PROCEDURE HAS NOT BEEN CANCELLED, PT STATES "I JUST WANT TO FEEL BETTER".
--- NOTE | 2020-04-17 13:45 | NUR ---
PRE OP DONE PER PROTOCOL ORDER, PT SITTING UP IN CHAIR AT BEDSIDE, CALL LIGHT/PHONE WITHIN REACH, NO S/S OF ACUTE DISTRESS OBSERVED.
--- NOTE | 2020-04-17 14:15 | NUR ---
OFF UNIT TO NET APPLICATION SUPPORT SPECIALIST
--- NOTE | 2020-04-17 15:43 | NUR ---
RETURNED FROM HEALTH CARE MANAGER WITH CLEAN CATH, ENTRY THROUGH RIGHT RADIAL VEIN, REPORT CALLED BY BRADLEY FAYE, CALL LIGHT/PHONE/WATER WITHIN REACH, NO S/S OF ACUTE DISTRESS OBSERVED.
--- NOTE | 2020-04-17 15:55 | NUR ---
PATIENT TO REFUSE SCD'S, STATES "THEY HURT". INSTRUCTED IN PREVENTION OF BLOOD CLOTS IN WEARING THEM.
[2020-04-17 17:09] VITALS: BP 172/84; Ht 175.3 cm; Wt 129.5 kg
[2020-04-17] MEDS ORDERED: COZAAR50 MG PO (18:07)
[2020-04-17] MEDS ORDERED: CATAPRES PO (18:08)
--- NOTE | 2020-04-17 20:00 | NUR ---
PT DISCHARGED TO HOME VIA YELLOW CAB AT THIS TIME.
== END 2020-04-17 20:01 | disposition home or self-care (01) ==
LOC: D.ER 12:32 → D.M2 14:26 → D.EDHOLD 14:26 → D.M2 18:20 → OBSVTIME 18:30 → D.SDCHOLD 04-17 09:15 → D.M2 04-17 09:18 → D.SDCHOLD 04-17 16:05 → D.M2 04-17 16:06
PROVIDERS: Family Medicine; Internal Medicine Cardiovascular Disease; ADMIT Family Medicine; ATTEND Family Medicine
DX: R07.9 Chest pain, unspecified (principal); I10 Essential (primary) hypertension; E11.9 Type 2 diabetes mellitus without complications; F32.9 Major depressive disorder, single episode, unspecified

== ENCOUNTER → 2020-07-03 09:49 | Outpatient (CLI) | payer MEDICARE, BC ==
[2020-04-17 17:09] VITALS: BMI 42.2
[~2020-07-03 09:49] MED LIST changes: +CATAPRES PO
== END | disposition home or self-care (01) ==
LOC: D.US 09:49
PROVIDERS: ATTEND Internal Medicine Cardiovascular Disease
DX: R55 Syncope and collapse (principal)

== ENCOUNTER 2020-07-31 02:29 | Emergency (ER) | payer MEDICARE, BC ==
[2020-07-31 02:30] VITALS: Ht 175.3 cm
[2020-07-31 04:14] LABS: BASOPHILS 0.4 % (0-2); EOSINOPHILS 0.4 % (0-7); HEMATOCRIT 39.5 % (42.0-54.0); HEMOGLOBIN 13.2 g/dL (13.5-17.5); MCH 28.5 pg (26.0-34.0); MCHC 33.5 g/dL (31.0-37.0); MEAN PLATELET VOLUME 7.9 fL (7.4-10.4); MONOCYTES 9.5 % (2-11); NEUTROPHILS 78.7 % (40-80); PLATELET COUNT 206 10x3/uL (130-400); RBC 4.65 10x6/uL (4.20-6.10); RDW 13.9 % (11.5-14.5); WBC 9.9 10x3/uL (4.8-10.8)
[2020-07-31 04:22] LABS: CALC OSMOLALITY 283 mosm/kg (275-300); CARBON DIOXIDE 25.2 mmol/L (21.0-32.0); CHLORIDE - SERUM 104 mmol/L (98-107); CREATININE - SERUM 1.3 mg/dL (0.6-1.3); GLUCOSE 92 mg/dL (74-106); POTASSIUM - SERUM 3.9 mmol/L (3.5-5.1); SODIUM 141 mmol/L (136-145); UREA NITROGEN 21 mg/dL (7-18); eGFR NON AFRICAN AMERICAN 57 mL/min (90-120)
[2020-07-31 04:23] LABS: INR 1.12 (0.85-1.17); PROTIME 13.3 SECONDS (11.6-15.0)
[2020-07-31 04:25] LABS: D-DIMER-QUANTITATIVE 0.64 ug/mLFEU (0.20-0.54)
[2020-07-31 04:37] LABS: ALBUMIN 3.7 g/dL (3.4-5.0); ALKALINE PHOSPHATASE 106 U/L (30-120); ALT (SGPT) 38 U/L (10-68); BILIRUBIN - TOTAL 0.84 mg/dL (0.2-1.3); MAGNESIUM - SERUM 2.1 mg/dL (1.8-2.4); PRO BNP 223 pg/mL (0-450); PROTEIN - SERUM 8.1 g/dL (6.4-8.2); THYROID STIMULATING HORMONE 3.24 uIU/mL (0.36-3.74)
[2020-07-31 04:41] LABS: TROPONIN-I < 0.017 ng/mL (0.000-0.060)
[2020-07-31 06:53] VITALS: BP 204/87
== END 2020-07-31 07:01 | disposition home or self-care (01) ==
LOC: D.ER 02:29
PROVIDERS: Family Medicine
DX: R55 Syncope and collapse (principal); R11.2 Nausea with vomiting, unspecified; R42 Dizziness and giddiness; I11.0 Hypertensive heart disease with heart failure; I50.9 Heart failure, unspecified; E11.9 Type 2 diabetes mellitus without complications; Z79.84 Long term (current) use of oral hypoglycemic drugs; S09.90XA Unspecified injury of head, initial encounter; W22.8XXA Striking against or struck by other objects, initial encounter; Y93.9 Activity, unspecified; Y92.9 Unspecified place or not applicable

== ENCOUNTER 2020-08-11 06:51 | Observation (INO) | payer MEDICARE, BC ==
[~2020-08-11] VITALS: Ht 175.3 cm; Wt 130.5 kg
--- NOTE | ~2020-08-11 | OP ---
PATIENT NAME: ARTHUR LEIJA MEDICAL RECORD: [id number] :42 LOCATION:D. D.2121 ADMISSION DATE:08/11/20 SURGEON: ANGELA CURTIS MD DATE OF OPERATION: 08/11/2020 PROCEDURE: Lead portion of permanent pacemaker placement. INDICATION: Sick sinus syndrome with pauses and PAF. SURGEON: Dr. Trujillo. DESCRIPTION OF PROCEDURE: After left subclavian was cannulated via modified Seldinger technique via Dr. Trujillo, first under fluoroscopic guidance, placed the RV lead in the RV apex without difficulty. After adequate R waves and thresholds were obtained, again under fluoroscopic guidance placed the right atrial lead into the right atrial appendage without difficulty. After adequate P waves and thresholds were obtained, the leads were attached to appropriate poles of the generator and pocket was closed via Dr. Trujillo. IMPRESSION: Successful lead portion of permanent pacemaker placement of Arthur Leija. ESTIMATED BLOOD LOSS: Minimal. COMPLICATIONS: None. DISPOSITION: To the floor, stable. TRANSINT:[id number] Voice Confirmation ID: [id number] DOCUMENT ID: [id number] ANGELA CURTIS MD CC: [id number] DICTATION DATE: 08/11/20 1013 INVESTIGATIVE ASSISTANT: 08/11/20 1814 ADM IN [facility] [address] [place] [address]
--- NOTE | ~2020-08-11 | HEMODYNAMI ---
PATIENT:STAR BAJWA MEDICAL RECORD: [id number] : 44 LOCATION:D.CAT ADMISSION DATE: 08/11/20 Generatedon:110:17 Patient name: STAR BAJWA Patient #: [id number] SSN: [id number] : 1940 Date of study: 08/11/2020 Page: Of Hemodynamic Procedure Report Patient Data Patient Demographics Procedure consent was obtained First Name: STAR Gender: Male Last Name: GARETT : 1940 Middle Initial: W Age: 79 year(s) Patient #: [id number] Race: SSN: [id number] Additional ID: [id number] Contact details Address: [address] [place] [address] State: [place] City: [place] Zip code: [address] Past Medical History Allergies: No known allergies Admission Admission Data Admission Date: 08/11/2020 Admission Time: 6:51 Arrival Date: 08/11/2020 Arrival Time: 0:00 Admit Source: Other Insurance Payor: Medicare, Private health insurance [facility] #: [id number] Height (in.): 24.41 BSA: 1.11 (m2) Height (cm.): 62 BMI: 322.14 (kg/m2) Weight (lbs.): 273 Weight (kg.): 123.83 Lab Results Lab Result Date: 08/11/2020 Lab Result Time: 0:00 Biochemistry Name Units Result Min Max BUN mg/dl 21 --(----)-* 7 18 Creatinine mg/dl 1.3 --(---*)-- 0.6 1.3 eGFR ml/min 57 *-(----)-- 90 120 NONAFRICAN CBC Name Units Result Min Max Hematocrit % 39.5 -*(----)-- 42 54 Hemoglobin g/dl 13.2 -*(----)-- 13.5 17.5 Procedure Procedure Types Cath Procedure Diagnostic Procedure PPM/ICD PPM Dual Implant Sedation Charges Moderate Sedation 40-54 minutes Procedure Description Procedure Date Procedure Date: 08/11/2020 Procedure Start Time: 9:32 Procedure End Time: 10:13 Procedure Staff Name Function Osvaldo Viera MD Performing Physician Miguel Alvarenga MD Assisting physician Adri Larose RT Monitor Yunior Webber RN Nurse Sybil íDaz RT Scrub Procedure Data Cath Procedure Fluoroscopy Diagnostic fluoroscopy Total fluoroscopy Time: 2.5 time: 2.5 min min Diagnostic fluoroscopy Total fluoroscopy dose: 0 dose: 0 mGy mGy Estimated blood loss: 10 ml Procedure Complications No complications Procedure Medications Medication Administration Route Dosage Oxygen etCO2 Nasal cannula 2 l/min Lidocaine 1% with added to field 20 Epi Ancef (1Gm/50ml NS) I.V.P.B 1 g Ancef Irrigation Topical 1 g (1gm/500ml NS) 0.9% NaCl I.V. Versed I.V. 2 mg Fentanyl I.V. 100 mcg Versed I.V. 2 mg Fentanyl I.V. 100 mcg Versed I.V. 1 mg Versed I.V. 1 mg Fentanyl I.V. 50 mcg Fentanyl I.V. 50 mcg Hemodynamics Rest BSA: 1.11 (m2) O2 Consumption: Estimated: 125.82 (ml/min) O2 Consumption indexed : Estimated:113.35 (ml/min/m) Heart Rate: 67 (bpm) Snapshots Pre Cath Intra NCS Post Cath Vital Signs Time Heart Resp SPO2 NIBP (mmHg) Rhythm Pain Sedation Rate (ipm) (%) Status Level (bpm) 9:15:18 67 22 96 176/79(147) NSR (Missing) 10(A) 9:19:52 68 20 95 182/72(129) NSR (Missing) 10(A) 9:24:25 65 17 95 180/74(125) NSR (Missing) 10(A) 9:29:02 68 16 97 177/72(129) NSR (Missing) 10(A) 9:34:52 67 13 95 174/74(129) NSR (Missing) 9(A) 9:39:26 112 16 96 155/71(136) NSR (Missing) 9(A) 9:43:53 90 17 96 169/85(134) NSR (Missing) 9(A) 9:48:27 72 18 97 178/84(140) NSR (Missing) 9(A) 9:54:23 89 16 95 182/71(127) NSR (Missing) 9(A) 9:58:49 91 14 98 141/74(112) NSR (Missing) 9(A) 10:04:17 74 20 93 164/74(116) NSR (Missing) 10(A) 10:08:52 78 15 93 172/78(124) NSR (Missing) 10(A) 10:13:30 77 20 92 166/77(131) NSR (Missing) 10(A) Medications Time Medication Route Dose Verified Delivered Reason Notes Effective ness by by 9:20:22 Oxygen etCO2 2 Osvaldo Buffie used for Nasal l/min [facility] nursing manager cannula 9:20:37 Lidocaine added 20 ml Osvaldo Osvaldo for local 1% with Epi to x2 [facility] anesthetic field MD ESTEVEZ 9:21:57 Ancef I.V.P.B 1 g Osvaldo Buffie used for (1Gm/50ml [facility] nursing manager NS) 9:22:06 Ancef Topical 1 g Osvaldo Osvaldo used for Irrigation [facility] procedure (1gm/500ml MD ESTEVEZ NS) 9:22:18 0.9% NaCl I.V. kvo Osvaldo Olsenie Per ml/hr [place] Webber RN physician 9:28:25 Versed I.V. 2 mg Osvaldo Buffie for Maximiliano Webber RN sedation 9:28:30 Fentanyl I.V. 100 Osvaldo Buffie for mcg Maximiliano Webber RN sedation 9:34:53 Versed I.V. 2 mg Osvaldo Buffie for Maximiliano Webber RN sedation 9:34:56 Fentanyl I.V. 100 Osvaldo Buffie for [facility] Maximiliano Webber RN sedation 9:40:12 Versed I.V. 1 mg Osvaldo Buffie for Maximiliano Webber RN sedation 9:46:06 Versed I.V. 1 mg Osvaldo Buffie for Maximiliano Webber RN sedation 9:49:54 Fentanyl I.V. 50 Osvaldo Buffie for mcg Maximiliano Webber RN sedation 9:51:21 Fentanyl I.V. 50 Osvaldo Buffie for [facility] Maximiliano Webber RN sedation MD Procedure Log Time Note 7:58:02 Arrival Date: 08/11/2020 12:00:00 AM 7:58:38 Insurance Payor : Private health insurance, Medicare 7:59:20 Admit Source: Other 7:59:27 Patient Height : 24.41 inches 7:59:43 Patient Weight : 273 lbs 8:58:11 Lab Result : Creatinine 1.3 mg/dl 8:58:11 Lab Result : BUN 21 mg/dl 8:58:11 Lab Result : Hematocrit 39.5 % 8:58:11 Lab Result : Hemoglobin 13.2 g/dl 8:58:11 Lab Result : eGFR NONAFRICAN 57 ml/min 8:58:51 ACC Patient presents with Stable Angina CCS Anginal Class 2--Slight limitation of ordinary activity. 8:58:54 Procedure Status PPM/ Gen Change/ Lead Revision/ Temp. 8:58:57 Yunior Webber RN sent for patient. Start room use. 8:58:59 Time tracking: Regular hours (M-F 7:00 - 5:00) 8:59:05 Plan of Care:Hemodynamics will remain stable., Cardiac rhythm will remain stable., Comfort level will be maintained., Respiratory function will remain adequate., Patient/ family verbilizes understanding of procedure., Procedure tolerated without complication., Recovers from procedure without complications.. 8:59:52 H&P Date Dictated: 07/31/2020 Within 30 days and on chart.. 8:59:54 Family in waiting room. 8:59:55 Patient NPO since Midnight. 9:00:02 Patient allergic to No known allergies 9:00:09 Lab results completed and on chart. 9:00:12 Stress Test: no; N/A ? 9:00:14 Alarms reviewed by R. N. 9:00:15 Sharps counted by scrub and verified by R.N. 9:01:32 Informed consent obtained and on chart 9:04:54 Patient received from Pre/Post Procedure Room to CCL 3 Alert and oriented. Tansferred to table in Supine position. 9:04:56 Warm blankets applied, and kandy hugger turned on for patient comfort. 9:04:56 Correct patient and procedure confirmed by team. 9:04:57 ECG and BP/O2 sat monitors applied to patient. 9:04:58 Pre-procedure instructions explained to patient. 9:04:59 Pre-op teaching completed and patient verbalized understanding. 9:05:01 Is the patient allergic to Iodine/contrast media? No. 9:05:05 Was the patient premedicated? N/A 9:13:54 Vital chart was started 9:20:22 Oxygen 2 l/min etCO2 Nasal cannula was administered by Yunior Webber RN; used for procedure; Verbal order read back and verified. 9:20:37 Lidocaine 1% with Epi 20 ml x2 added to field was administered by Osvaldo Viera MD; for local anesthetic; Verbal order read back and verified. 9:20:41 Is patient on blood thinner?No 9:20:42 Patient diabetic? Yes. 9:20:46 If diabetic: On Metformin? No 9:21:34 ----Pre-sedation anethsthesia assessment.---- 9:21:37 Previous problem with sedation/anesthesia? No ? 9:21:40 Snore? Yes 9:21:42 Sleep apnea? Unknown 9:21:43 Deviated septum? No 9:21:44 Opens mouth fully? Yes 9:21:44 Sticks out tongue? Yes 9:21:46 Airway obstruction? Unknown ? 9:21:49 Dentures? No ? 9:21:52 Patient pain scale 0/10 ?. 9:21:57 Ancef (1Gm/50ml NS) 1 g I.V.P.B was administered by Yunior Webber RN; used for procedure; Verbal order read back and verified. 9:21:58 IV patent on arrival in left antecubital with 0.9% NaCl at KVO. 9:22:03 Baseline sample Acquired. 9:22:06 Ancef Irrigation (1gm/500ml NS) 1 g Topical was administered by Osvaldo Viera MD; used for procedure; Verbal order read back and verified. 9:22:08 Rhythm: 1st degree heart block 9:22:16 Left chest area was prepped with chlora-prep and draped in sterile fashion 9:22:18 0.9% NaCl kvo ml/hr I.V. was administered by Yunior Webber RN; Per physician; Verbal order read back and verified. 9:22:26 Use device set JAROCHO PPM 9:22:33 2-0 Ticron Multipack ([id number]) opened to sterile field. 9:22:33 3-0 Vicryl Single Pack [id number] opened to sterile field. 9:22:34 5-0 Monocryl PS2 [id number] opened to sterile field. 9:22:34 Cautery Tip Carton Filling Machine Operator opened to sterile field. 9::35 Cautery Pushbutton Pencil opened to sterile field. 9:22:45 Tegaderm 4 x 4 ([id number]) opened to sterile field. 9:23:14 Immobilizer Extra Large opened to sterile field. 9:23:36 Full Disclosure recording started 9:27:59 --------ALL STOP TIME OUT------ 9:28:00 Final Timeout: patient, procedure, and site verified with staff and physician. All members of the team are in agreement. 9:28:03 Left chest site verified by team. 9:28:06 Fire Safety Assessment: A--An alcohol-based skin anteseptic being used preoperatively., C--Open oxygen or nitrous oxide is being used., D--An ESU, laser, or fiber-optic light is being used. 9:28:09 Physical assessment completed. ASA score P 2 - A patient with mild systemic disease as per Osvaldo Viera MD. 9:28:14 Sedation plan: IV Moderate Sedation Medication:Versed, Fentanyl 9:28:18 Procedure started. 9:28:25 Versed 2 mg I.V. was administered by Yunior Webber RN; for sedation; Verbal order read back and verified. 9:28:30 Fentanyl 100 mcg I.V. was administered by uYnior Webber RN; for sedation; Verbal order read back and verified. 9:28:30 [employer]ore [employer] credit resolution representative HUMA JOHNSTON present for procedure. 9:28:39 Pre sharps counted by scrub and verified by RN: Sutures: 7; Sponges: 5; Stick needles: 2; Skin needles: 2; Blade: 1; Cautery: 1 9:28:43 Grounding pad site Left thigh. 9:28:44 Grounding pad site free from injury. 9:33:17 LIDOCAINE W/ 1% LIDOCAINE INJECTED AT LEFT SUBCLAVICULAR AREA BY DR. DOE.. 9:33:47 Incision made to left subclavicular area. 9:34:53 Versed 2 mg I.V. was administered by Yunior Webber RN; for sedation; Verbal order read back and verified. 9:34:56 Fentanyl 100 mcg I.V. was administered by Yunior eWbber RN; for sedation; Verbal order read back and verified. 9:35:26 Left subclavian vein accessed with 9Fr Peel Away Sheath. 9:37:22 Generator pocket made/opened. 9:38:[address] Generator [id number] opened to sterile field. 9:39:10 Medtronic 5568-53 PPM Lead opened to sterile field. 9:40:12 Versed 1 mg I.V. was administered by Yunior Webber RN; for sedation; Verbal order read back and verified. 9:41:02 Medtronic 4074-58 PPM Lead opened to sterile field. 9:42:38 Left subclavian vein accessed with 7Fr Peel Away Sheath. 9:43:47 Ventricular lead inserted and advanced. 9:44:47 Ventricular lead positioned. 9:45:22 Ventricular lead tested. 9:46:06 Versed 1 mg I.V. was administered by Yunior Webber RN; for sedation; Verbal order read back and verified. 9:48:34 Atrial lead inserted and advanced. 9:48:36 Atrial lead positioned. 9:49:54 Fentanyl 50 mcg I.V. was administered by Yunior Webber RN; for sedation; Verbal order read back and verified. 9:50:44 Atrial lead tested. 9:51:21 Fentanyl 50 mcg I.V. was administered by Yunior Webber RN; for sedation; Verbal order read back and verified. 9:52:13 Peel-a-way sheath was split and removed. 9:54:49 Ventricular lead attachment was completed with 2-0 ticron. 9:54:53 Atrial lead attachment was completed with 2-0 ticron. 9:57:58 PPM Dual was attached to lead(s) and inserted into pocket. 9:59:49 Subcutaneous closure was completed with 2-0 ticron. 10:00:07 Generator was sutured in place with 3-0 vicryl. 10:00:32 Device pocket was irrigated with Ancef. 10:00:40 Skin closure was completed with 5-0 monocryl. 10:01:17 Post sharps counted by scrub and verified by RN: Sutures: 4; Sponges: 5; Stick needles: 2; Skin needles: 2; Blade: 1; Cautery: 1 10:01:41 Dermabond Pen opened to sterile field. 10:02:37 Lt Chest incision was dressed with Dermabond. 10:03:13 Fluoroscopy time 02.50 minutes. 10:03:28 Fluoroscopy dose: 0 mGy 10:03:28 Flurop Dose total: 0 10:03:33 Dose Area Product 58026 mGy/cm. 10:03:50 Sharps counted by scrub and verified by R.N. 10:05:41 Insertion/operative site no bleeding no hematoma. 10:09:44 Post-op/insertion site Left Chest area dressed using a 4 x 4 and Tegaderm. 10:11:18 Procedure ended.(Physican Out) 10:11:34 Post procedure rhythm: paced 10:11:36 Estimated blood loss: 10 ml 10:11:37 Post procedure instruction explained to patient.Patient verbalizes understanding. 10:11:38 Patient needs reinforcement of post procedure teaching. 10:12:33 Procedure type changed to Cath procedure, Diagnostic procedure, PPM/ICD, PPM Dual Implant, Sedation Charges, Moderate Sedation 40-54 minutes 10:12:36 Procedure and supply charges have been captured, reviewed, submitted and are correct. 10:12:40 Procedure Complication : No complications 10:12:46 Operative report dictated upon procedure completion. 10:12:46 See physician's report for complete and final results. 10:12:54 Report given to Pre/Post Procedure Room. 10:12:58 Patient transfered to Pre/Post Procedure Room with Bed. 10:13:01 Procedure ended. 10:13:01 Full Disclosure recording stopped 10:15:05 Post Procedure Pulses reassessed and unchanged 10:15:11 Post-procedure physical assessment completed. ASA score P 2 - A patient with mild systemic disease as per Osvaldo Viera MD. 10:15:20 Vital chart was stopped 10:15:24 End room use (Document Last) Device Usage Item Name Manufacture Quantity Catalog Hospital Part Current [facility] l Lot# / Number Charge Number Stock Stock Serial# Code 2-0 Ticron Ethicon 4 [id number] [id number] 34205 438003 5 Multipack ([id number]) 3-0 Vicryl Ethicon 1 [id number] [id number] 507771 [id number] 5 Single Pack [id number] 5-0 Monocryl Ethicon 1 [id number] 030483 714413 614724 5 PS2 Y495G Cautery Tip Microtek 1 [id number] 697835 894350 [id number] 5 Carton Filling Machine [employer] Cautery Microtek 1 [id number] 009649 48434 [id number] 5 Pushbutton [employer] Inc[employer] Pencil Tegaderm 4 x 3M 1 1626W 011685 993501 [id number] 5 4 (1626W) Immobilizer Cardinal 1 [id number] [id number] [id number] 201466 5 Extra Large Health Medtronic Medtronic 1 [id number] 786452 [id number] [id number] 5 CONSTANTIN XT [id number] Generator EXP: W1DR01 12/11/2021 Medtronic Medtronic 1 5568-53 177382 160634 501853 5 5568-53 PPM [id number] Lead EXP: 05/09/2021 Medtronic Medtronic 1 4074-58 805606 697773 994395 5 4074-58 PPM [id number] Lead EXP: 06/14/2021 Dermabond Ethicon 1 DNX6 934984 [id number] 5 Pen Signature Audit [place] Stage Time Signature Unsigned Intra-Procedure 08/11/2020 Adri Larose 10:15:46 AM RT(R) Intra-Procedure 08/11/2020 Yunior Webber RN 10:17:13 AM Intra-Procedure 08/11/2020 Osvaldo Ruby 10:17:31 AM Jack ESTEVEZ [place] [id number] [place] [id number]
[2020-08-11] MEDS ORDERED: NAMENDA10 MG PO (07:39)
[2020-08-11] MEDS ORDERED: ZANAFLEX4 MG PO (07:40)
[2020-08-11] MEDS ORDERED: DONEPEZIL HCL10 MG PO (07:42)
[2020-08-11] MEDS ORDERED: HYDRALAZINE HCL25 MG PO (07:42)
[2020-08-11] MEDS ORDERED: PAXIL20 MG PO (07:43)
[2020-08-11] MEDS ORDERED: CLONIDINE HCL0.1 MG PO (07:44)
[2020-08-11] MEDS ORDERED: LASIX20 MG PO (07:45)
[2020-08-11] MEDS ORDERED: ZOFRAN4 MG PO (07:46)
[2020-08-11] MEDS ORDERED: NORVASC10 MG PO (07:46)
[2020-08-11] MEDS ORDERED: BAYER ASPIRIN325 MG PO (07:47)
[2020-08-11 07:55] VITALS: BP 184/66; BMI 42.4
--- NOTE | 2020-08-11 11:00 | NUR ---
RECEIVED PT BACK TO ROOM 2121 VIA BED, PT A/O X4, RESP EVEN AND NONLABORED ON RA. LT FA IV SL. LT CHEST DRESSING CDI. SLING IN PLACE. WILL ASSESS PT AND START PLAN OF CARE.
[2020-08-11 14:22] LABS: HEMATOCRIT 36.1 % (42.0-54.0); HEMOGLOBIN 12.2 g/dL (13.5-17.5); MCH 28.8 pg (26.0-34.0); MCHC 33.8 g/dL (31.0-37.0); MCV 85.4 fL (80.0-100.0); MEAN PLATELET VOLUME 7.7 fL (7.4-10.4); RBC 4.23 10x6/uL (4.20-6.10); RDW 13.8 % (11.5-14.5); WBC 8.9 10x3/uL (4.8-10.8)
[2020-08-11 14:30] LABS: ANION GAP 10.5 mmol/L (8-16); CALCIUM 8.3 mg/dL (8.5-10.1); CARBON DIOXIDE 27.4 mmol/L (21.0-32.0); CREATININE - SERUM 1.3 mg/dL (0.6-1.3); POTASSIUM - SERUM 3.9 mmol/L (3.5-5.1)
[2020-08-11 14:36] LABS: INR 1.17 (0.85-1.17); PROTIME 13.8 SECONDS (11.6-15.0)
[2020-08-11 14:37] LABS: APTT 38.5 SECONDS (22.8-39.4)
[2020-08-11 14:41] VITALS: BP 168/88; Ht 175.3 cm; Wt 130.5 kg
--- NOTE | 2020-08-11 16:21 | NUR ---
PER JULIO CESAR GUTIERREZ APRN OK TO START PT HOME MEDICATIONS BUT START METFORMIN UNTIL 08/12. GAVE 15MG OF MORPHINE FOR PAIN LEVEL OF 8/10. ALL NEEDS MET, PT UP TO CHAIR, SLING IN PLACE, CALL LIGHT IN REACH.
[2020-08-11 17:43] VITALS: BP 110/68
[2020-08-11 20:00] VITALS: BP 184/69
--- NOTE | 2020-08-11 23:28 | NUR ---
ROUNDING DONE WITH PATIENT HOB AT 45 DEGREES. LEFT ARM SLING IN USE WITH DRESSING SEEN TO LEFT UPPER CHEST FROM PACEMAKER PLACEMENT. DRESSING IS CLEAN, DRY AND INTACT. RADIAL PULSE FELT STRONG. NO NUMBNESS REPORTED TO FINGERS. SALINE LOCK PIV TO LEFT FOREARM, ORANGE SWAB CAP IN USE. ON HEART MONITOR SHOWING SR, WITH OCC PVC, HR IS 75. BILATERAL LOWER LEGS ARE SWOLLEN, 2-3 +, PATIENT STATES THIS IS NORMAL. USES URINAL TO VOID. REFUSES SCD'S EVEN THOUGH EDUCATION IS TAUGHT R/T DVT PREVENTION. CALL LIGHT AT SIDE.
[2020-08-12] VITALS: BP 127/53
--- NOTE | 2020-08-12 01:48 | NUR ---
RESTING ON RIGHT SIDE, LEFT ARM IS OUT OF SLING. AROUSES EASILY AND LEFT ARM PLACED BACK INTO SLING. RADIAL PULSE TO LEFT ARM IS STRONG.
--- NOTE | 2020-08-12 02:41 | NUR ---
RESTING ON RIGHT SIDE WITH EYES CLOSED, RESP ARE EVEN AND NON LABORED. SLING IS IN USE FOR LEFT ARM.
[2020-08-12 06:39] VITALS: BP 167/71
[2020-08-12 08:00] VITALS: BP 163/65
--- NOTE | 2020-08-12 10:40 | NUR ---
IV AND TELEMETRY DCD. DC PLANS GIVEN. UNDERSTANDING VOICED. ESCORTED TO CAR BY W/C.
== END 2020-08-12 10:40 | disposition home or self-care (01) ==
LOC: D.CATH 06:51 → D.M2 10:48 → D.CATH 11:40 → OBSVTIME 11:41 → D.M2 08-12 10:40
PROVIDERS: ADMIT Internal Medicine Interventional Cardiology; ATTEND Internal Medicine Interventional Cardiology
DX: I49.5 Sick sinus syndrome (principal); I11.0 Hypertensive heart disease with heart failure; I50.9 Heart failure, unspecified; E11.9 Type 2 diabetes mellitus without complications; Z79.4 Long term (current) use of insulin; I48.91 Unspecified atrial fibrillation